=== PATIENT | female | born 1945 | race Caucasian/White ===

== ENCOUNTER 2022-06-01 15:14 | Inpatient (IN) | payer MEDICARE, OTHER ==
[~2022-06-01] VITALS: Ht 160 cm; Wt 69.4 kg
--- NOTE | 2022-06-01 15:17 | NUR ---
[id number] C/O SOB AND FEVER SINCE MORNING. AT 99% ON NRB. PLACED ON BED, RESPONDING TO VERBAL STIMULI, DYSPNEIC RR-30, TACHYCARDIC VA-147. MD AT BEDSIDE FOR EVAL.
[2022-06-01] MEDS: Magnesium 1GM/D5W 100ML PREMIX 100 ML IV SCH ×2 (15:30→16:35)
[2022-06-01] MEDS ORDERED: IPRATROPIUM NEB FS 0.5 MG/2.5 ML AMPUL.NEB NEB ONE (15:30)
[2022-06-01] MEDS ORDERED: IV NS 0.9% 500 ML BAG IV ONE (15:30)
[2022-06-01] MEDS ORDERED: ALBUTEROL FS 2.5 MG/0.5 ML VIAL.NEB NEB ONE (15:30)
[2022-06-01] MEDS ORDERED: methylPREDNISolone SOD SUCC 125 MG/2ML VIAL IV ONE (15:30)
--- NOTE | 2022-06-01 15:30 | NUR ---
BLOOD DRAWN AND SENT TO LAB
--- NOTE | 2022-06-01 15:35 | NUR ---
LINOTYPE MECHANIC AT BEDSIDE FOR BREATHING TREATMENT
[2022-06-01 15:36] LABS: BASOPHILS % (AUTO) 0.1 % (0.0-2.0); EOSINOPHILS % (AUTO) 0.2 % (0.0-6.0); HEMATOCRIT 35 % (33-45); LYMPHOCYTES # (AUTO) 0.5 K/uL (0.8-4.8); LYMPHOCYTES % (AUTO) 2.3 % (20.0-44.0); MEAN CORPUSCULAR HGB CONC 31 g/dl (31.0-36.0); MEAN CORPUSCULAR VOLUME 96 fL (82-100); MONOCYTES # (AUTO) 1.1 K/uL (0.1-1.30); MONOCYTES % (AUTO) 4.9 % (2.0-12.0); NEUTROPHILS % (AUTO) 92.5 % (43.0-81.0); PLATELET COUNT (AUTO) 213 K/uL (150-450); RED BLOOD CELL COUNT(AUTO) 3.68 MIL/uL (4.0-5.2); WHITE BLOOD COUNT (AUTO) 21.6 K/uL (4.3-11.0)
[2022-06-01] MEDS ORDERED: Magnesium 1GM/D5W 100ML PREMIX 100 ML IV ONE ×2 (15:37→16:25)
[2022-06-01] MEDS ORDERED: methylPREDNISolone SOD SUCC 125 MG/2ML VIAL ONE (15:37)
--- NOTE | 2022-06-01 15:40 | NUR ---
MOVE SHEET SUBMITTED.
[2022-06-01] MEDS ORDERED: ALBUTEROL FS 2.5 MG/0.5 ML VIAL.NEB ONE (15:43)
[2022-06-01] MEDS ORDERED: IPRATROPIUM NEB FS 0.5 MG/2.5 ML AMPUL.NEB ONE (15:43)
--- NOTE | 2022-06-01 15:44 | NUR ---
COVID AND FLU SWABS DONE AND SENT TO LAB
--- NOTE | 2022-06-01 15:45 | NUR ---
RT AT BEDSIDE FOR TREATMENT
[2022-06-01 15:50] LABS: CALCIUM, SERUM 9.1 mg/dL (8.5-10.1); CARBON DIOXIDE 30 mmol/L (21-32); CHLORIDE 92 mmol/L (98-107); CREATININE 0.9 mg/dL (0.6-1.3); GLUCOSE 138 mg/dL (74-106); POTASSIUM 4.9 mmol/L (3.5-5.1); SODIUM SERUM 126 mmol/L (136-145); UREA NITROGEN, BLOOD 10 mg/dL (7-18)
[2022-06-01 16:03] LABS: ALANINE AMINOTRANSFERASE 32 U/L (12-78); ALBUMIN 3.1 g/dL (3.4-5.0); ALKALINE PHOSPHATASE 95 U/L (46-116); ASPARTATE AMINOTRANSFERASE 24 U/L (15-37); BILIRUBIN,DIRECT 0.3 mg/dL (0.0-0.2); BILIRUBIN,TOTAL 0.9 mg/dL (0.2-1.0); TOTAL PROTEIN, SERUM 6.7 g/dL (6.4-8.2)
[2022-06-01] MEDS ORDERED: VANCOMYCIN HCL 1.25 GM in IV D5W 260 ML IV ONE (17:00)
[2022-06-01] MEDS ORDERED: PIPERACILLIN /TAZOBACTAM 3.375 G in IV D5W 50 ML IV ONE (17:00)
--- NOTE | 2022-06-01 17:19 | NUR ---
RT NOTE PT BROUGHT IN TO ER FOR SOB. PLACED ON BIPAP PER MD ORDER 23/02 16 100%. HHN TX GIVEN PER MD. BROCK SHERMAN AT BEDSIDE. NO NEW ORDERS GIVEN. WILL CONTINUE TO MONITOR PT. Addendum: 06/01/22 at 1722 by JESS FERNANDO RT Amended: Links added.
--- NOTE | 2022-06-01 17:53 | NUR ---
[facility] CALLED ACUTE CARE REGISTERED NURSE PAGED.
[2022-06-01 18:43] LABS: BAND % (MANUAL) 6 % (0.0-5.0); LYMPHOCYTES % (MANUAL) 2 % (16-48); MONOCYTES % (MANUAL) 1 % (0-11.0); NEUTROPHILS % (MANUAL) 91 (42-76)
--- NOTE | 2022-06-01 18:59 | NUR ---
GOT BED ASSIGNMENT 256
[2022-06-01] MEDS ORDERED: IV NS 0.9% 1,000 ML IV ONE ×2 (19:00→19:30)
--- NOTE | 2022-06-01 19:46 | NUR ---
SON , CALL ONCE WE HAVE A ROOM [phone]
--- NOTE | 2022-06-01 20:00 | NUR ---
REPORT GIVEN TO CAROLINE RN ROOM 256 FOR CATHERINE
--- NOTE | 2022-06-01 20:00 | NUR ---
URINE SAMPLE SENT TO LAB
[2022-06-01] MEDS ORDERED: Z GUARD REMEDY 4 OZ OINT TP PRN (20:30)
[2022-06-01] MEDS ORDERED: CEFEPIME 1 GM in IV D5W 50 ML IV SCH (20:30)
[2022-06-01] MEDS ORDERED: ENOXAPARIN SODIUM 40 MG/0.4 ML DISP.SYRIN SQ SCH (20:30)
[2022-06-01 20:58] VITALS: BP 120/48
[2022-06-01 21:00] VITALS: BP 127/58
--- NOTE | 2022-06-01 21:00 | NUR ---
Received patient from ER per butch via ACLS MODE.Patient place on BIPAP by RT 23/02 Rate 16 FIO2 60%.DX: COPD EXACERBATION.Patient came from SNF C/O SOB and fever.Respiration even and unlabored.Saturation 100%.SR.Afebrile.Patient drowsy but responsive oriented to person and place.Moves all extremities but weak.FC to gravity.Oriented to unit and plan of care explained to patient.Verbalized understanding.Denies pain or any discomfort at this time.Safety measures implemented. Call light at bedside.
[2022-06-01 21:01] LABS: BILIRUBIN,URINE NEGATIVE (NEGATIVE); COLOR,URINE YELLOW (YELLOW); LEUKOCYTE ESTERASE ,URINE NEGATIVE (NEGATIVE); NITRITE, URINE NEGATIVE (NEGATIVE); PH,URINE 6.5 (5.0-8.0); PROTEIN,URINE NEGATIVE (NEGATIVE); UGLUCOSE NEGATIVE (NEGATIVE)
[2022-06-01 21:32] LABS: BACTERIA,URINE RARE /HPF (None Seen); RBC,URINE 0-2 /HPF (0-2); WBC,URINE 0-2 /HPF (0-3)
--- NOTE | 2022-06-01 21:50 | NUR ---
Patient son,BERTRAND visiting updated of patient status and plan of care.
[2022-06-01 22:00] VITALS: BP 95/49
[2022-06-01] MEDS ORDERED: CEFEPIME 1 GM VIAL ONE (22:49)
[2022-06-01 23:00] VITALS: BP 98/46
[2022-06-01] MEDS ORDERED: CEFEPIME 1 GM in IV D5W 50 ML IV ONE (23:30)
[2022-06-02] VITALS (14 sets, daily range): BP systolic 84–126; BP diastolic 40–84
[2022-06-02] MEDS: IV LR 1000 ML 1,000 ML IV PRN ×2 (01:39→12:16)
[2022-06-02 05:14] LABS: BASOPHILS % (AUTO) 0.1 % (0.0-2.0); HEMATOCRIT 24 % (33-45); LYMPHOCYTES # (AUTO) 0.2 K/uL (0.8-4.8); MEAN CORPUSCULAR HGB CONC 33 g/dl (31.0-36.0); MEAN CORPUSCULAR VOLUME 95 fL (82-100); MONOCYTES # (AUTO) 0.1 K/uL (0.1-1.30); MONOCYTES % (AUTO) 1.9 % (2.0-12.0); NEUTROPHILS # (AUTO) 7.3 K/uL (1.8-8.9); PLATELET COUNT (AUTO) 135 K/uL (150-450); RED BLOOD CELL COUNT(AUTO) 2.55 MIL/uL (4.0-5.2); WHITE BLOOD COUNT (AUTO) 7.7 K/uL (4.3-11.0)
[2022-06-02 05:36] LABS: BILIRUBIN,TOTAL 0.5 mg/dL (0.2-1.0); CALCIUM, SERUM 7.7 mg/dL (8.5-10.1); CREATININE 0.6 mg/dL (0.6-1.3); MAGNESIUM 2.3 mg/dL (1.8-2.4); PHOSPHORUS 2.9 mg/dL (2.5-4.9); POTASSIUM 4.1 mmol/L (3.5-5.1); TOTAL PROTEIN, SERUM 4.8 g/dL (6.4-8.2)
[2022-06-02 05:44] LABS: THYROID STIMULATING HORMONE 0.188 uIU/mL (0.358-3.74)
[2022-06-02 06:15] LABS: ABG BASE EXCESS 2.4 mmol/L; ABG OXYGEN SATURATION 99.5 % (92.0-98.5); ABG PCO2 49.7 mmHg (35.0-45.0); ABG PH 7.371 (7.350-7.450); ABG PO2 247.3 mmHg (75.0-100.0); AaDO2 125.8 mmHg; COHb 0.1 % (0.5-1.5); MetHb 0.1 % (0.0-1.5); O2Hb 99.3 % (94.0-97.0); SITE, ABG Right Brachial; VENT MODE, BG S/T 16 20/8 60%
--- NOTE | 2022-06-02 07:00 | NUR ---
Patient resting slept most of the night tolerating BIPAP.More awake Oriented to place and time. VSS.SR.Denies pain or sob.IVF infusing well.Adequate urine output.Report given to day shift RN for sergio.
[2022-06-02] MEDS ORDERED: PANTOPRAZOLE 40 MG TABLET.DR PO SCH (07:30)
[2022-06-02] MEDS: ALBUTEROL FS 2.5 MG/3 ML VIAL.NEB NEB SCH ×4 (07:52→20:25)
[2022-06-02] MEDS: IPRATROPIUM NEB FS 0.5 MG/2.5 ML AMPUL.NEB NEB SCH ×6 (07:52→20:25)
[2022-06-02] MEDS: ASPIRIN EC 81 MG TABLET.DR PO SCH (08:36)
[2022-06-02] MEDS ORDERED: ALPR0.5T PO (08:44)
[2022-06-02] MEDS ORDERED: IPRA3AMP23 IH ×2 (08:44)
[2022-06-02] MEDS ORDERED: PROM118S PO (08:44)
[2022-06-02] MEDS ORDERED: SENN-261 PO (08:44)
[2022-06-02] MEDS ORDERED: IBUP-2715 PO (08:44)
[2022-06-02] MEDS ORDERED: BISA10SU11 RC (08:44)
[2022-06-02] MEDS ORDERED: MULT-447 PO (08:44)
[2022-06-02] MEDS ORDERED: TIOT18CA3 IH (08:44)
[2022-06-02] MEDS ORDERED: HYDR28.485 TD (08:44)
[2022-06-02] MEDS ORDERED: ASCO100058 PO (08:44)
[2022-06-02] MEDS ORDERED: SODI1TAB66 PO (08:44)
[2022-06-02] MEDS ORDERED: MONT10TA22 PO (08:44)
[2022-06-02] MEDS ORDERED: ZINC113O14 TP (08:44)
[2022-06-02] MEDS ORDERED: BUDE0.5A4 IH (08:44)
[2022-06-02] MEDS ORDERED: LIDO30AD10 TP (08:44)
[2022-06-02] MEDS ORDERED: NA P133E RC (08:44)
[2022-06-02] MEDS ORDERED: ACET-2605 PO (08:44)
[2022-06-02] MEDS ORDERED: LOSA50TA39 PO (08:44)
[2022-06-02] MEDS ORDERED: PRED10TA PO (08:44)
[2022-06-02] MEDS ORDERED: GUAI600T53 PO (08:44)
[2022-06-02] MEDS ORDERED: CHOL100043 PO (08:44)
[2022-06-02] MEDS ORDERED: MAGN400O6 PO (08:44)
[2022-06-02] MEDS ORDERED: OXYC10TA49 PO ×2 (08:44)
[2022-06-02] MEDS ORDERED: NEOM1OIN15 TP (08:44)
[2022-06-02] MEDS ORDERED: ROFL250T PO (08:44)
[2022-06-02] MEDS ORDERED: TRAZ-182 PO (08:44)
[2022-06-02] MEDS ORDERED: ONDA4TAB5 PO (08:44)
[2022-06-02] MEDS ORDERED: PANT40TA2 PO (08:44)
[2022-06-02] MEDS ORDERED: FLUT16SP (08:44)
[2022-06-02] MEDS ORDERED: CITA10TA17 PO (08:44)
[2022-06-02] MEDS ORDERED: POLY17PO4 PO (08:44)
[2022-06-02] MEDS ORDERED: ATOR40TA PO (08:44)
[2022-06-02] MEDS ORDERED: ALBU8.5H8 IH (08:44)
[2022-06-02] MEDS ORDERED: DILT120C87 PO (08:44)
--- NOTE | 2022-06-02 10:20 | NUR ---
ROWDY CALLEJAS AT THE UNIT AND MADE AWARE OF PATIENT'S C/O ANXIOUSNESS, NO ORDER MADE AT THIS TIME.
--- NOTE | 2022-06-02 11:45 | NUR ---
NOTIFIED MARILYNN AGAIN AND MADE AWARE OF PATIENT'S C/O ANXIOUSNESS, MD STATES " WILL PUT XANAX ORDER."
[2022-06-02] MEDS ORDERED: SALINE NASAL SPRAY 0.65% 1 BOTTLE BOTTLE NS PRN (12:00)
[2022-06-02] MEDS ORDERED: FLUTICASONE PROPIONATE 16 GM BOTTLE NS PRN (12:00)
[2022-06-02] MEDS: CEFEPIME 2 GM in IV D5W 100 ML IV SCH (12:01)
[2022-06-02] MEDS: ALPRAZOLAM 0.5 MG TABLET PO PRN (12:12)
--- NOTE | 2022-06-02 12:30 | NUR ---
RAILROADER NOTES RECEIVED PATIENT FROM ICU , WITH DX OF COPD EXACERBATION , A/O X 4 AND VERBALLY RESPONSIVE , NO SOB OR DISTRESS NOTED , NO C/O OF PAIN AND DISCOMFORT NOTED , IV ACCES ON LEFT WRIST G20 WITH LR OF 100 ML /HOUR RUNNING WELL , IV ACCES RIGHT WRIST G#18 SL ,SUBSTATION MAINTENANCE TECHNICIAN ATTACHED AND WITH READING OF SR 92 , NOTED WITH ECCHYMOSIS ON CHEST ; RFA , BLE SKIN DISCOLORATION AND EDEMA +2 , V/S TAKEN AND RECORDED , ALL NEEDS ATTENDED .
--- NOTE | 2022-06-02 12:45 | NUR ---
TRANSFERRED PT TO [facility]/TELE UNIT, RM 116-BED-1 PER ORDER/PROTOCOL; BEDSIDE REPORT GIVEN TO MICHELLE NUNO, PT.STABLE CONDITION; NO SSx OF DISTRESS NOTED. VS STABLE . ALL BELONGINGS TRANSFERRED WITH PATIENT, ROSS AWARE.
[2022-06-02] MEDS: oxyCODONE IR immediate release 5 MG PO PRN (13:45)
[2022-06-02] MEDS: methylPREDNISolone SOD SUCC 40 MG/ML VIAL IV SCH ×2 (13:56→21:58)
[2022-06-02] MEDS: ACETYLCYSTEINE 10% SOLN 400 MG/4 ML VIAL NEB SCH (15:20)
[2022-06-02] MEDS ORDERED: IV LR 1000 ML 1,000 ML IV PRN (16:10)
[2022-06-02] MEDS: LOSARTAN POTASSIUM 50 MG TABLET PO SCH (17:22)
[2022-06-02] MEDS: PANTOPRAZOLE 40 MG TABLET.DR PO SCH (17:22)
[2022-06-02] MEDS: VANCOMYCIN 1.25 GM in IV D5W 250 ML IV SCH (17:25)
[2022-06-02] MEDS ORDERED: ALPRAZOLAM 0.5 MG TABLET PO ONE (17:30)
--- NOTE | 2022-06-02 17:30 | NUR ---
RN NOTES PATIENT C/O THAT SHE VERY ANXIOUS AND ASKING FOR XANAX , EXPAINED THAT ITS Q8H PRN , AWARE AND AWARE ABOUT PATIENTS CONDITION AND HE ORDERED TO GIVE X 1 DOSE AND GIVEN ORDERED .
--- NOTE | 2022-06-02 17:35 | NUR ---
SKID ROAD MAN CLOSING NOTES PATIENT FROM ICU , WITH DX OF COPD EXACERBATION , A/O X 4 AND VERBALLY RESPONSIVE , NO SOB OR DISTRESS NOTED , NO C/O OF PAIN AND DISCOMFORT NOTED , IV ACCES ON LEFT WRIST G20 WITH LR OF 100 ML /HOUR RUNNING WELL , IV ACCES RIGHT WRIST G#18 SL ,QUALITY TECHNICIAN ATTACHED AND WITH READING OF SR 92 , ALL DUE MEDS ORDERED , C/O OF PAIN AND DISCOMFORT AND OXY IR ORDERED GIVEN AND WITH HELP , XANAX WAS GIVEN ORDERED , WILL ENDORSED TO NEXT SHIFT .
--- NOTE | 2022-06-02 20:00 | NUR ---
[facility] RN NOTE PT IN BED AWAKE. A/O X 3, NO SOB, NO DISTRESS OR DISCOMFORT NOTED. DENIES PAIN AT THIS TIME. ON O2 2L N'/C 02 SAT 98%. ON TELE SR WITH PAC AND PVC HR 88. BOTH SL OCCLUDED RT WRIST AND LT WRIST. WILL REINSERT NEW LINE LATER. F/C INTACT AND PATENT DRAINING YELLOWISH COLOR URINE. VSS. ALL NEEDS ATTENDED. KEPT HER DRY AND CLEAN. CONTINUE TO MONITOR HER.
[2022-06-02] MEDS: BUDESONIDE RESPULE INH 0.5 MG/2 ML AMPUL.NEB IH SCH (20:25)
--- NOTE | 2022-06-02 21:30 | NUR ---
[facility] RN NOTE NEW LINE IN INSERTED IN RT HAND 2ND DIGIT #24 G BY CHARGE NURSE DADA, RESUMED LR AT 75 ML/HR, NO S/S OF INFILTRATION NOTED. HS MEDS GIVEN. ALSO GIVEN PER PT REQUEST TRAZODONE FOR SLEEP. CONTINUE TO MONITOR HER.
[2022-06-02] MEDS: ATORVASTATIN 40 MG TABLET PO SCH (21:58)
[2022-06-02] MEDS: TRAZODONE 50 MG TABLET PO PRN (21:58)
[2022-06-02] MEDS: MONTELUKAST SODIUM (10MG) 10 MG TABLET PO SCH (21:58)
[2022-06-02] MEDS: ENOXAPARIN SODIUM 40 MG/0.4 ML DISP.SYRIN SQ SCH (21:59)
[2022-06-03] VITALS: BP_SYST 134; BP_SYST 139; BP_DIAS 54; BP_DIAS 73
[2022-06-03] MEDS: ACETYLCYSTEINE 10% SOLN 400 MG/4 ML VIAL NEB SCH ×4 (00:15→23:30)
[2022-06-03] MEDS: IPRATROPIUM NEB FS 0.5 MG/2.5 ML AMPUL.NEB NEB SCH ×8 (02:27→20:44)
[2022-06-03 04:00] VITALS: BP 141/63
[2022-06-03] MEDS: methylPREDNISolone SOD SUCC 40 MG/ML VIAL IV SCH ×3 (05:35→21:29)
[2022-06-03] MEDS: ALBUTEROL FS 2.5 MG/3 ML VIAL.NEB NEB SCH ×4 (07:49→20:20)
[2022-06-03] MEDS: BUDESONIDE RESPULE INH 0.5 MG/2 ML AMPUL.NEB IH SCH ×2 (07:49→20:44)
[2022-06-03 08:00] VITALS: BP 115/58
[2022-06-03] MEDS: ASPIRIN EC 81 MG TABLET.DR PO SCH (08:05)
[2022-06-03] MEDS: PANTOPRAZOLE 40 MG TABLET.DR PO SCH ×2 (08:05→16:51)
[2022-06-03] MEDS: DILTIAZEM HCL CD 120 MG PO SCH (08:06)
[2022-06-03] MEDS: CITALOPRAM HYDROBROMIDE 10 MG TABLET PO SCH (08:06)
[2022-06-03] MEDS: LOSARTAN POTASSIUM 50 MG TABLET PO SCH ×2 (08:06→16:51)
[2022-06-03] MEDS: ALPRAZOLAM 0.5 MG TABLET PO PRN ×2 (08:24→16:51)
[2022-06-03] MEDS: oxyCODONE IR immediate release 5 MG PO PRN ×2 (09:16→21:30)
[2022-06-03] MEDS: CEFEPIME 2 GM in IV D5W 100 ML IV SCH (10:41)
[2022-06-03] MEDS ORDERED: oxyCODONE HCL SR 10MG TAB.SR.12H PO ONE (11:30)
[2022-06-03] MEDS ORDERED: NALOXONE HCL 0.4 MG/ML AMPUL IV PRN (11:30)
[2022-06-03 12:00] VITALS: BP 132/62
--- NOTE | 2022-06-03 14:45 | NUR ---
RN NOTE FC REMOVED PER ORDER. PUREWICK IN PLACE. PT EDUCATED ON PUREWICK.
[2022-06-03 16:00] VITALS: BP 120/5
[2022-06-03 16:33] LABS: CREATININE 0.7 mg/dL (0.6-1.3); POTASSIUM 4.2 mmol/L (3.5-5.1)
[2022-06-03] MEDS: VANCOMYCIN 1.25 GM in IV D5W 250 ML IV SCH (17:54)
[2022-06-03 20:00] VITALS: BP 124/62
[2022-06-03] MEDS: NEOMY SULF/BACITRAC ZN/POLY 15 GM TUBE TP SCH (20:00)
--- NOTE | 2022-06-03 20:43 | NUR ---
RN NOTE UNABLE TO APPLY NEOSPORIN TO RUE WOUND THE XEROFORM UNABLE TO BE REMOVED. RAILROAD WHEELS AND AXLES INSPECTOR TO COME IN AM.
[2022-06-03] MEDS: ENOXAPARIN SODIUM 40 MG/0.4 ML DISP.SYRIN SQ SCH (21:00)
--- NOTE | 2022-06-03 21:17 | NUR ---
RN NOTE INFORMED DR. CORCORAN THAT PATIENT IS REQUESTING LOZANGES. RECEIVED ORDERED FOR LOZANGES Q2HR PRN. ORDER NOTED AND CARRIED OUT.
[2022-06-03] MEDS: ATORVASTATIN 40 MG TABLET PO SCH (21:29)
[2022-06-03] MEDS: MONTELUKAST SODIUM (10MG) 10 MG TABLET PO SCH (21:29)
--- NOTE | 2022-06-03 21:40 | NUR ---
RN NOTE FAXED MEDICATION ORDER TO RN COMMERCIAL PLUMBER, PER COMMERCIAL PLUMBER WE DO NOT CARRY IN NIGHT MEDICATION LOCKER, INFORMED PATIENT, WILL HAVE PHARMACY DELIVER IN AM.
[2022-06-04] VITALS: BP 139/73
[2022-06-04] MEDS: ALPRAZOLAM 0.5 MG TABLET PO PRN ×3 (01:07→16:35)
[2022-06-04] MEDS: IPRATROPIUM NEB FS 0.5 MG/2.5 ML AMPUL.NEB NEB SCH ×8 (02:19→19:46)
[2022-06-04 04:00] VITALS: BP 132/71
[2022-06-04] MEDS: oxyCODONE IR immediate release 5 MG PO PRN ×2 (05:39→14:42)
[2022-06-04] MEDS: methylPREDNISolone SOD SUCC 40 MG/ML VIAL IV SCH ×3 (05:39→21:30)
[2022-06-04] MEDS: ACETYLCYSTEINE 10% SOLN 400 MG/4 ML VIAL NEB SCH ×3 (07:26→23:48)
[2022-06-04] MEDS: ALBUTEROL FS 2.5 MG/3 ML VIAL.NEB NEB SCH ×4 (07:26→19:45)
[2022-06-04] MEDS: BUDESONIDE RESPULE INH 0.5 MG/2 ML AMPUL.NEB IH SCH ×2 (07:26→19:49)
[2022-06-04 07:28] LABS: CARBON DIOXIDE 29 mmol/L (21-32); CHLORIDE 100 mmol/L (98-107); CREATININE 0.6 mg/dL (0.6-1.3); GLUCOSE 137 mg/dL (74-106); POTASSIUM 4.2 mmol/L (3.5-5.1); SODIUM SERUM 134 mmol/L (136-145); UREA NITROGEN, BLOOD 11 mg/dL (7-18)
--- NOTE | 2022-06-04 07:33 | NUR ---
RN CLOSING NOTE A/OX3, SOMETIMES FORGETFUL. 2L VIA NASAL CANNULA. NO S/S SOB NOTED. C/O PAIN IN BACK AND BILATERAL ELBOWS. PRN OXY IR 10MG GIVEN. PRN XANAX GIVEN FOR ANXIETY. PATIENT IS VERY ANXIOUS. SINUS RHYTHM ON THE MONITOR. NO BM THIS SHIFT. PUREWICK IN PLACE WITH GOOD OUTPUT. RUE SOAKED WITH STERILE WATER THROUGHOUT SHIFT WOUND CARE TEAM WILL COME AND REASSESS WOUND. VERY DRY WITH XEROFORM ATTACHED AND DIFFICULT TO REMOVE. IV MAINTAINED. PLAN OF CARE TO CONTINUE ABX, BREATHING TX , O2 TITRATION AND STEROIDS PER PULM.
--- NOTE | 2022-06-04 07:44 | NUR ---
RN OPENING NOTE A/OX3, SOMETIMES FORGETFUL. 2L VIA NASAL CANNULA. NO S/S SOB NOTED. SINUS RHYTHM ON THE MONITOR. PUREWICK IN PLACE WITH GOOD OUTPUT. WOUND CARE NURSE AT BED SIDE PERFORMING WOUND CARE.. PATIENT HAS A RIGHT HAND 2BD DIGIT IV ACCESS TKO. SAFETY MEASURES IN PLACE PER HOSPITAL POLICY.
[2022-06-04 07:45] LABS: HEMATOCRIT 26 % (33-45); HEMOGLOBIN 8.6 g/dL (11.5-14.8); LYMPHOCYTES # (AUTO) 0.2 K/uL (0.8-4.8); LYMPHOCYTES % (AUTO) 2.1 % (20.0-44.0); MEAN CORPUSCULAR HGB CONC 33 g/dl (31.0-36.0); MEAN CORPUSCULAR VOLUME 95 fL (82-100); MONOCYTES # (AUTO) 0.3 K/uL (0.1-1.30); MONOCYTES % (AUTO) 2.7 % (2.0-12.0); NEUTROPHILS % (AUTO) 95.2 % (43.0-81.0); PLATELET COUNT (AUTO) 142 K/uL (150-450); RED BLOOD CELL COUNT(AUTO) 2.75 MIL/uL (4.0-5.2); WHITE BLOOD COUNT (AUTO) 9.5 K/uL (4.3-11.0)
[2022-06-04 08:00] VITALS: BP 139/73
[2022-06-04] MEDS: MENTHOL/CETYLPYRD (CEPACOL) 1 LOZ LOZENGE PO PRN (08:08)
--- NOTE | 2022-06-04 08:08 | NUR ---
WOUND CARE CONSULT: PT SEEN FOR SKIN ASSESSMENT AND NOTED TO HAVE LARGE SKIN TEAR/AVULSION TO RT ARM AND SKIN TEAR TO LEFT HAND, PRESENT ON ADMISSION. RT ARM WOUND HAD XEROFORM DRESSING WHICH HAD BECOME ADHERENT AND WAS REMOVED WITH COPIOUS IRRIGATION OF STERILE WATER, PT TOLERATED WELL. PT HAS VERY FRAGILE SKIN WITH AREAS OF DISCOLORATION. RECOMMENDATIONS MADE FOR SKIN PROTECTION AND WOUND CARE. DISCUSSED WITH NURSING STAFF AND PLASTIC SURGERY TEAM OF DR KOHANZADEH. ORANETS IN AGREEMENT WITH PLAN OF CARE. Addendum: 06/04/22 at 0811 by TAHIR PHELPS WNDNU Amended: Links added.
[2022-06-04] MEDS: ASPIRIN EC 81 MG TABLET.DR PO SCH (08:14)
[2022-06-04] MEDS: CITALOPRAM HYDROBROMIDE 10 MG TABLET PO SCH (08:14)
[2022-06-04] MEDS: LOSARTAN POTASSIUM 50 MG TABLET PO SCH ×2 (08:14→16:35)
[2022-06-04] MEDS: PANTOPRAZOLE 40 MG TABLET.DR PO SCH ×2 (08:15→16:35)
[2022-06-04] MEDS: DILTIAZEM HCL CD 120 MG PO SCH (08:16)
[2022-06-04] MEDS: NEOMY SULF/BACITRAC ZN/POLY 15 GM TUBE TP SCH (08:16)
[2022-06-04 12:00] VITALS: BP 142/73
[2022-06-04] MEDS: MUPIROCIN OINT 2% 22 GM TUBE NS SCH ×2 (12:21→21:30)
[2022-06-04] MEDS: CEFEPIME 2 GM in IV D5W 100 ML IV SCH (12:40)
[2022-06-04] MEDS ORDERED: MUPIROCIN OINT 2% 22 GM TUBE NS SCH (15:00)
[2022-06-04 16:00] VITALS: BP 137/75
--- NOTE | 2022-06-04 16:41 | NUR ---
RN NOTE PATIENT NOTED TO HAVE INCREASED BLEEDING FROM RIGHT ARM WOUND. WAS ADVISED BY WOUND CARE NURSE TO DC LOVENOX AND ASPIRIN UNTIL BLEEDING IS CONTROLLED. INFORMED DR QUICK RECEIVED OKAY TO STOP MEDICATION FOR NOW.
[2022-06-04] MEDS: VANCOMYCIN 1.25 GM in IV D5W 250 ML IV SCH (18:27)
--- NOTE | 2022-06-04 18:53 | NUR ---
RN CLOSING NOTE A/OX3, SOMETIMES FORGETFUL. 2L VIA NASAL CANNULA. NO S/S SOB NOTED. C/O PAIN IN BACK AND BILATERAL ELBOWS. PRN OXY IR 10MG GIVEN. PRN XANAX GIVEN FOR ANXIETY. PATIENT IS VERY ANXIOUS. SINUS RHYTHM ON THE MONITOR. NO BM THIS SHIFT. PUREWICK IN PLACE WITH GOOD OUTPUT. RUE SOAKED WITH STERILE WATER THROUGHOUT SHIFT IV MAINTAINED. PLAN OF CARE TO CONTINUE ABX, BREATHING TX , O2 TITRATION AND STEROIDS PER PULM. SAFETY MEASURES IN PLACE PER HOSPITAL POLICY. ENDORSE FOR PLATE GRINDER NURSE TO CONTINUE EVALUATION.
--- NOTE | 2022-06-04 19:30 | NUR ---
BUILDING SPECIALIST OPENING NOTE RECEIVED PT IN AWAKE IN BED A/OX3, SOMETIMES FORGETFUL. 2L VIA NASAL CANNULA. NO S/S SOB NOTED. SINUS RHYTHM ON THE MONITOR. NOTED WITH RUE WOUND WITH DRESSING C/D/I, IV ACCESS AT DOROTEO ML AND R HAND INTACT, PATENT AND FLUSHING WELL, WITH PUREWICK IN PLACED, SAFETY MEASURES IN PLACE PER HOSPITAL POLICY. FAMILY MEMBER AT BEDSIDE, WILL CONTINUE TO MONITOR THROUGHOUT THE SHIFT.
[2022-06-04 20:00] VITALS: BP 138/66
[2022-06-04] MEDS: ATORVASTATIN 40 MG TABLET PO SCH (21:30)
[2022-06-04] MEDS: MONTELUKAST SODIUM (10MG) 10 MG TABLET PO SCH (21:30)
[2022-06-04] MEDS: TRAZODONE 50 MG TABLET PO PRN (22:27)
[2022-06-05] VITALS: BP 132/73
[2022-06-05] MEDS: ALPRAZOLAM 0.5 MG TABLET PO PRN ×2 (01:20→11:10)
[2022-06-05] MEDS: IPRATROPIUM NEB FS 0.5 MG/2.5 ML AMPUL.NEB NEB SCH ×6 (02:02→20:06)
[2022-06-05 04:00] VITALS: BP 132/73
[2022-06-05] MEDS: methylPREDNISolone SOD SUCC 40 MG/ML VIAL IV SCH ×3 (05:44→21:52)
[2022-06-05 06:07] LABS: CALCIUM, SERUM 8.2 mg/dL (8.5-10.1); CARBON DIOXIDE 36 mmol/L (21-32); CHLORIDE 103 mmol/L (98-107); CREATININE 0.5 mg/dL (0.6-1.3); GLUCOSE 139 mg/dL (74-106); POTASSIUM 3.8 mmol/L (3.5-5.1); SODIUM SERUM 138 mmol/L (136-145); UREA NITROGEN, BLOOD 12 mg/dL (7-18)
[2022-06-05 06:20] LABS: HEMATOCRIT 26 % (33-45); HEMOGLOBIN 8.6 g/dL (11.5-14.8); LYMPHOCYTES # (AUTO) 0.2 K/uL (0.8-4.8); LYMPHOCYTES % (AUTO) 2.4 % (20.0-44.0); MEAN CORPUSCULAR HGB CONC 33 g/dl (31.0-36.0); MEAN CORPUSCULAR VOLUME 94 fL (82-100); MONOCYTES # (AUTO) 0.3 K/uL (0.1-1.30); MONOCYTES % (AUTO) 3.7 % (2.0-12.0); NEUTROPHILS # (AUTO) 7.4 K/uL (1.8-8.9); NEUTROPHILS % (AUTO) 93.9 % (43.0-81.0); PLATELET COUNT (AUTO) 129 K/uL (150-450); RED BLOOD CELL COUNT(AUTO) 2.75 MIL/uL (4.0-5.2); WHITE BLOOD COUNT (AUTO) 7.9 K/uL (4.3-11.0)
--- NOTE | 2022-06-05 06:46 | NUR ---
ACCOUNTING MACHINE OPERATOR CLOSING NOTE PT REMAINS IN BED SLEEPING BUT EASILY AROUSABLE TO TOUCH AND VOICE, A/OX3, SOMETIMES FORGETFUL. 2L VIA NASAL CANNULA. NO S/S SOB NOTED. SINUS RHYTHM ON THE MONITOR. NOTED WITH RUE AND L HAND WOUND WITH DRESSING C/D/I, IV ACCESS AT DOROTEO ML AND R HAND 2ND DIGIT #24G INTACT, PATENT AND FLUSHING WELL, WITH PUREWICK IN PLACED, ALL NEEDS ATTENDED, SAFETY MEASURES IN PLACE PER HOSPITAL POLICY. ALL DUE MEDS GIVEN, KEPT DRY AND CLEAN, WILL CONTINUE TO MONITOR THROUGHOUT THE SHIFT.
--- NOTE | 2022-06-05 07:41 | NUR ---
RN NOTES Received patient in bed, alert but tired looking without active complaint. Telemetry showed ST HR 125/min. Right hand IV site is dry and intact with IVF running at 75mL/hr. Call harrington is placed within reach. Bed is locked and placed in the lowest position. All safety measures have been implemented. Addendum: 06/05/22 at 0748 by GROVER SHERIFF RN wrong entry
[2022-06-05 08:00] VITALS: BP 170/90
--- NOTE | 2022-06-05 08:00 | NUR ---
RN NOTES RECEIVED PATIENT IN THE BED ON O2-2L, patient full code on DNI, was complaining of sob, rt with the patient at this time for breathing treatment, due medication administered, am care done, assist turn and reposition q 2 hr. patient was complaining of generalize pain 8/10 per pain scale,due medication administered, DOROTEO midline intact. flashed, infusing Tko. call light within to reach. will follow up.
[2022-06-05] MEDS: ACETYLCYSTEINE 10% SOLN 400 MG/4 ML VIAL NEB SCH (08:11)
[2022-06-05] MEDS: ALBUTEROL FS 2.5 MG/3 ML VIAL.NEB NEB SCH ×4 (08:11→20:07)
[2022-06-05] MEDS: BUDESONIDE RESPULE INH 0.5 MG/2 ML AMPUL.NEB IH SCH ×2 (08:12→20:00)
[2022-06-05] MEDS: LOSARTAN POTASSIUM 50 MG TABLET PO SCH ×2 (08:25→17:50)
[2022-06-05] MEDS: PANTOPRAZOLE 40 MG TABLET.DR PO SCH ×2 (08:25→15:46)
[2022-06-05] MEDS: DILTIAZEM HCL CD 120 MG PO SCH (08:27)
[2022-06-05] MEDS: CITALOPRAM HYDROBROMIDE 10 MG TABLET PO SCH (08:27)
[2022-06-05] MEDS: NEOMY SULF/BACITRAC ZN/POLY 15 GM TUBE TP SCH (08:31)
[2022-06-05] MEDS: oxyCODONE IR immediate release 5 MG PO PRN ×2 (08:39→16:46)
--- NOTE | 2022-06-05 08:39 | NUR ---
RN NOTES ADMINISTERED OXY IR 10 MG PO PRN PER PATIENT REQUEST FOR GENERALIZED PAIN 02/13. BP 170/90, P-125.
[2022-06-05] MEDS: MUPIROCIN OINT 2% 22 GM TUBE NS SCH ×2 (10:18→21:55)
[2022-06-05] MEDS: CEFEPIME 2 GM in IV D5W 100 ML IV SCH (10:19)
--- NOTE | 2022-06-05 10:19 | NUR ---
RN NOTES ADMINISTERED FLONASE PER PATIENT REQUEST, MEDICATION WERE ADMINISTERED FOR PAIN EFFECTIVE, PT WITH THE PATIENT.
--- NOTE | 2022-06-05 11:10 | NUR ---
RN NOTES ADMINISTERED XANAX 0.5 MG PO PRN FOR ANXIETY PER PATIENT REQUEST.
[2022-06-05 12:00] VITALS: BP_SYST 131; BP_SYST 170; BP_DIAS 71; BP_DIAS 90
[2022-06-05] MEDS: IBUPROFEN 200 MG TABLET PO PRN ×2 (13:08→21:52)
--- NOTE | 2022-06-05 13:08 | NUR ---
RN Notes Administered Motrin 400 mg per patient's request for generalized pain.
[2022-06-05] MEDS: ACETAMINOPHEN 325 MG TABLET PO PRN (15:45)
--- NOTE | 2022-06-05 15:45 | NUR ---
rn notes administered Tylenol 650 mg po prn for pain 12/14.
[2022-06-05 16:00] VITALS: BP 161/79
[2022-06-05] MEDS: ALBUTEROL FS 2.5 MG/0.5 ML VIAL.NEB NEB PRN (16:17)
--- NOTE | 2022-06-05 18:30 | NUR ---
RN NOtes PM care done, due medications administered, infusing vancomicyn 125 ml/hr, pain medication were administered affective, patient resting in the bed. call light is within reach, assisted turn and reposition every 2 hours. endorsed oncoming nurse CATHERINE.
[2022-06-05] MEDS: VANCOMYCIN 1.25 GM in IV D5W 250 ML IV SCH (18:38)
[2022-06-05 20:00] VITALS: BP 162/72
--- NOTE | 2022-06-05 20:15 | NUR ---
RN OPENING NOTES PATIENT RECEIVED ON BED AWAKE, A/O X 3, VERBALLY RESPONSIVE ON NASAL CANULA @ 2LPM SATING AT 94%, RESPIRATORY EVEN AND UNLABORED NO SOB NOTED, AFEBRILE, NO S/S OF DISTRESS NOTED. NOTED WITH DOROTEO ML, RIGHT HAND SECOND DIGIT #24 PERIPHERAL LINE, FLUSHED WITH NS. WITH PUREWICK IN PLACED. ALL SAFETY MEASURE PROVIDED. BED IN LOWEST POSITION, LOCKED. CONTINUE TO MONITOR.
--- NOTE | 2022-06-05 21:10 | NUR ---
RN NOTES UNABLE TO ADMINISTER PULMICORT INH, MEDS UNABLE TO FIND. WILL FOLLOW UP WITH PHARMACY
[2022-06-05] MEDS: MONTELUKAST SODIUM (10MG) 10 MG TABLET PO SCH (21:52)
[2022-06-05] MEDS: ATORVASTATIN 40 MG TABLET PO SCH (21:52)
[2022-06-06] VITALS: BP 152/77
[2022-06-06] MEDS: ALPRAZOLAM 0.5 MG TABLET PO PRN ×3 (00:03→20:24)
[2022-06-06] MEDS: TRAZODONE 50 MG TABLET PO PRN (01:00)
[2022-06-06 04:00] VITALS: BP 158/86
[2022-06-06] MEDS: methylPREDNISolone SOD SUCC 40 MG/ML VIAL IV SCH ×2 (05:32→12:55)
[2022-06-06] MEDS: BUDESONIDE RESPULE INH 0.5 MG/2 ML AMPUL.NEB IH SCH ×2 (07:16→19:30)
[2022-06-06] MEDS: IPRATROPIUM NEB FS 0.5 MG/2.5 ML AMPUL.NEB NEB SCH ×4 (07:16→20:08)
[2022-06-06] MEDS: ALBUTEROL FS 2.5 MG/3 ML VIAL.NEB NEB SCH ×4 (07:16→20:08)
[2022-06-06 08:00] VITALS: BP 179/77
[2022-06-06 08:03] LABS: ALANINE AMINOTRANSFERASE 35 U/L (12-78); ALBUMIN 2.4 g/dL (3.4-5.0); ALKALINE PHOSPHATASE 59 U/L (46-116); ASPARTATE AMINOTRANSFERASE 18 U/L (15-37); BILIRUBIN,TOTAL 0.5 mg/dL (0.2-1.0); CALCIUM, SERUM 8.3 mg/dL (8.5-10.1); CARBON DIOXIDE 33 mmol/L (21-32); CHLORIDE 102 mmol/L (98-107); CREATININE 0.5 mg/dL (0.6-1.3); GLUCOSE 126 mg/dL (74-106); POTASSIUM 3.5 mmol/L (3.5-5.1); SODIUM SERUM 139 mmol/L (136-145); TOTAL PROTEIN, SERUM 5.2 g/dL (6.4-8.2); UREA NITROGEN, BLOOD 13 mg/dL (7-18)
[2022-06-06] MEDS: PANTOPRAZOLE 40 MG TABLET.DR PO SCH ×2 (08:24→17:00)
[2022-06-06] MEDS: CITALOPRAM HYDROBROMIDE 10 MG TABLET PO SCH (08:24)
[2022-06-06] MEDS: oxyCODONE IR immediate release 5 MG PO PRN ×3 (08:25→17:00)
[2022-06-06] MEDS: DILTIAZEM HCL CD 120 MG PO SCH (08:25)
[2022-06-06] MEDS: LOSARTAN POTASSIUM 50 MG TABLET PO SCH ×2 (08:25→17:00)
[2022-06-06] MEDS: MUPIROCIN OINT 2% 22 GM TUBE NS SCH ×2 (09:44→21:00)
[2022-06-06] MEDS: NEOMY SULF/BACITRAC ZN/POLY 15 GM TUBE TP SCH (09:44)
--- NOTE | 2022-06-06 10:15 | NUR ---
FIELD FOREMAN NOTES PATIENT TRANSFERRED FROM [facility]. PATIENT IS A/O TIMES 4. NO PAIN NOTED. NO SOB NOTED. NO DISTRESS NOTED. ON TELE MONITOR READING SR. IV ACCESS ON THE LEFT UPPERARM MIDLINE INTACT. ALL NEEDS ATTENDED. ABLE TO MAKE NEEDS KNOWN. SKIN CHECKS DONE. WILL CONTINUE TO MONITOR CLOSELY.
--- NOTE | 2022-06-06 10:36 | NUR ---
COVID 19 ANTIGEN SPECIMEN COLLECTED AND SENT TO LAB.
[2022-06-06] MEDS: CEFEPIME 2 GM in IV D5W 100 ML IV SCH (11:17)
[2022-06-06 12:00] VITALS: BP 140/83
[2022-06-06] MEDS: LEVOFLOXACIN (250MG) 250 MG TABLET PO SCH (12:58)
[2022-06-06] MEDS: IBUPROFEN 200 MG TABLET PO PRN ×2 (13:36→20:25)
[2022-06-06] MEDS: ACETAMINOPHEN 325 MG TABLET PO PRN (15:16)
[2022-06-06 16:00] VITALS: BP 179/83
[2022-06-06] MEDS: DOXYCYCLINE HYCLATE (100 MG) 100 MG TABLET PO SCH (21:00)
[2022-06-06] MEDS: MONTELUKAST SODIUM (10MG) 10 MG TABLET PO SCH (22:00)
[2022-06-06] MEDS: ATORVASTATIN 40 MG TABLET PO SCH (22:00)
[2022-06-06 23:40] VITALS: BP 156/68
[2022-06-07 00:24] VITALS: BP 157/75
[2022-06-07] MEDS: oxyCODONE IR immediate release 5 MG PO PRN ×3 (00:40→20:20)
[2022-06-07] MEDS: ALBUTEROL FS 2.5 MG/0.5 ML VIAL.NEB NEB PRN (01:39)
[2022-06-07 04:00] VITALS: BP 165/97
[2022-06-07] MEDS: ALPRAZOLAM 0.5 MG TABLET PO PRN ×3 (04:24→21:24)
[2022-06-07] MEDS: MENTHOL/CETYLPYRD (CEPACOL) 1 LOZ LOZENGE PO PRN (05:21)
[2022-06-07] MEDS: ACETAMINOPHEN 325 MG TABLET PO PRN (05:49)
--- NOTE | 2022-06-07 07:07 | NUR ---
AWNING HANGER SUPERVISOR CLOSING NOTES PATIENT IS A/O TIMES 3. NO PAIN NOTED. NO SOB NOTED. NO DISTRESS NOTED. ON TELE MONITOR READING SR. IV ACCESS ON THE LEFT UPPER ARM MIDLINE INTACT. ALL DUE MEDS GIVEN ORDERED.ALL NEEDS ATTENDED. ABLE TO MAKE NEEDS KNOWN. SKIN CHECKS DONE. WILL ENDORSE FOR CATHERINE..
--- NOTE | 2022-06-07 07:10 | NUR ---
RN NOTE RECEIVED PATIENT IN BED RESTING ALERT ORIENTED X3 VERBALLY RESPONSIVE ON 2L OXYGEN VIA NASAL CANNULA O2:94% IV SITE IS ON LEFT UPPER ARM MIDLINE INTACT PATENT,INCONTINENT BOWEL/BLADDER SAFETY MEASURE IMPLEMENT BED IN LOW POSITON AND LOCKED,HEAD OF THE BED ELEVATED CALL LIGHT WITHIN REACH CONTINUE TO MONITOR.
[2022-06-07] MEDS: IPRATROPIUM NEB FS 0.5 MG/2.5 ML AMPUL.NEB NEB SCH ×4 (07:29→19:56)
[2022-06-07] MEDS: ALBUTEROL FS 2.5 MG/3 ML VIAL.NEB NEB SCH ×4 (07:29→19:56)
[2022-06-07] MEDS: BUDESONIDE RESPULE INH 0.5 MG/2 ML AMPUL.NEB IH SCH ×2 (07:29→19:30)
[2022-06-07] MEDS: PANTOPRAZOLE 40 MG TABLET.DR PO SCH ×2 (07:56→16:41)
[2022-06-07 08:00] VITALS: BP 162/75
[2022-06-07] MEDS: CITALOPRAM HYDROBROMIDE 10 MG TABLET PO SCH (08:32)
[2022-06-07] MEDS: LOSARTAN POTASSIUM 50 MG TABLET PO SCH ×2 (08:32→17:00)
[2022-06-07] MEDS: methylPREDNISolone SOD SUCC 40 MG/ML VIAL IV SCH (08:33)
[2022-06-07] MEDS: DOXYCYCLINE HYCLATE (100 MG) 100 MG TABLET PO SCH ×2 (08:33→20:19)
[2022-06-07] MEDS: DILTIAZEM HCL CD 120 MG PO SCH (08:33)
[2022-06-07] MEDS: MUPIROCIN OINT 2% 22 GM TUBE NS SCH ×2 (08:42→21:19)
[2022-06-07 08:43] LABS: CALCIUM, SERUM 8.7 mg/dL (8.5-10.1); CREATININE 0.8 mg/dL (0.6-1.3); POTASSIUM 3.3 mmol/L (3.5-5.1)
[2022-06-07] MEDS: NEOMY SULF/BACITRAC ZN/POLY 15 GM TUBE TP SCH (08:44)
--- NOTE | 2022-06-07 09:19 | NUR ---
WOUND CARE CONSULT: RECEIVED ANOTHER CONSULT FOR SKIN TEARS TO ARMS. DEFER TO PLASTIC SURGERY TEAM CURRENTLY ON CASE. DISCUSSED SKIN PROTECTION WITH NURSING STAFF. MD IN AGREEMENT WITH PLAN OF CARE.
[2022-06-07 11:04] LABS: BASOPHILS % (AUTO) 0.1 % (0.0-2.0); HEMATOCRIT 27 % (33-45); HEMOGLOBIN 8.8 g/dL (11.5-14.8); LYMPHOCYTES # (AUTO) 0.3 K/uL (0.8-4.8); LYMPHOCYTES % (AUTO) 1.8 % (20.0-44.0); MEAN CORPUSCULAR HGB CONC 32 g/dl (31.0-36.0); MEAN CORPUSCULAR VOLUME 95 fL (82-100); MONOCYTES % (AUTO) 6.6 % (2.0-12.0); NEUTROPHILS # (AUTO) 13.4 K/uL (1.8-8.9); NEUTROPHILS % (AUTO) 91.5 % (43.0-81.0); PLATELET COUNT (AUTO) 171 K/uL (150-450); RED BLOOD CELL COUNT(AUTO) 2.87 MIL/uL (4.0-5.2); WHITE BLOOD COUNT (AUTO) 14.7 K/uL (4.3-11.0)
[2022-06-07] MEDS: LEVOFLOXACIN (250MG) 250 MG TABLET PO SCH (11:38)
[2022-06-07 11:53] LABS: ABG BASE EXCESS 9.5 mmol/L; ABG OXYGEN SATURATION 96.7 % (92.0-98.5); ABG PCO2 57.8 mmHg (35.0-45.0); ABG PH 7.409 (7.350-7.450); ABG PO2 87.4 mmHg (75.0-100.0); COHb 0.6 % (0.5-1.5); MetHb 0.1 % (0.0-1.5); SITE, ABG Right Brachial; VENT MODE, BG NASAL CANNULA
[2022-06-07] MEDS ORDERED: POTASSIUM CHLORIDE 20 MEQ POWDER PACKET PO ONE (12:00)
[2022-06-07] MEDS: ONDANSETRON HCL/PF 4 MG/2 ML VIAL IVP PRN ×2 (16:41→23:12)
[2022-06-07] MEDS: ACETYLCYSTEINE 10% SOLN 400 MG/4 ML VIAL NEB SCH ×2 (16:43→23:14)
[2022-06-07] MEDS: ENSURE ENLIVE 237 ML LIQUID (VANILLA) PO SCH (17:41)
--- NOTE | 2022-06-07 19:07 | NUR ---
RN NOTE PATIENT REMAINS ALERT ORIENTED X3 VERBALLY RESPONSIVE ON 2L OXYGEN VIA NASAL CANNULA O2:96% NO SOB NOT ACUTE DISTRESS NOTED ALL DUE MEDS GIVEN MD ORDERED,ENDORSE NEXT COMING SHIFT FOR CONTINUATION OF CARE
--- NOTE | 2022-06-07 19:26 | NUR ---
RECEIVED PATIENT IN BED, ALERT/ORIENTED X3, ANXIOUS, NO SOB, ON 2LPM VIA NC, CONCERNED ABOUT PAIN MEDICATIONS AND NEXT DOSE OF XANAX, NOTED BUE ECCHYMOSIS, SKIN TEAR, PROTECTED WITH DRESSING. FAMILY AT THE BEDSIDE, KEPT SAFE, WILL CONTINUE TO MONITOR.
--- NOTE | 2022-06-07 20:06 | NUR ---
[facility] TREATMENT STOPPED AFTER 5 MINUTES DUE TO NAUSEA; RN NOTIFIED. Addendum: 06/07/22 at 2007 by MOMO ORELLANA RT Amended: Links added.
[2022-06-07 20:28] VITALS: BP 158/60
[2022-06-07 20:33] VITALS: BP 158/60
[2022-06-07] MEDS: ATORVASTATIN 40 MG TABLET PO SCH (21:20)
[2022-06-07] MEDS: MONTELUKAST SODIUM (10MG) 10 MG TABLET PO SCH (21:20)
[2022-06-07] MEDS: MORPHINE SULFATE INJ 2 MG/ML DISP.SYRIN IV PRN (22:41)
--- NOTE | 2022-06-07 23:14 | NUR ---
PATIENT ANXIOUS, COMPLAINING OF NAUSEA. ON THE TELE, FROM SR TO AFIB UNCONTROLLED, HR ELEVATED, HIGHEST IS 154, BP 116/65 HR 67, GIVEN MORPHINE 2 MG IV AND ZOFRAN, NOTIFIED MARKET PRESIDENT TIGIST, AWAITING ORDERS. PATIENT IS CALM AT THIS TIME.
--- NOTE | 2022-06-07 23:22 | NUR ---
PATIENT IS RELAXED NOW, APPEARED TO BE ASLEEP, PER TELE, AFIB CONTROLLED, HR 95
[2022-06-08] VITALS: BP 116/65
[2022-06-08] MEDS: ALBUTEROL FS 2.5 MG/0.5 ML VIAL.NEB NEB PRN (01:36)
[2022-06-08] MEDS: oxyCODONE IR immediate release 5 MG PO PRN ×2 (01:48→05:55)
--- NOTE | 2022-06-08 06:12 | NUR ---
ALERT/ORIENTED X3, 2LPM VIA NC, SPO2 88-98%, DISTRESSED WHEN ANXIOUS, SPO2 GOES DOWN, HR GOES UP. WITH EPISODE OF AFIB UNCONTROLLED, HR WENT UP TO 150S. GIVEN OXYCODONE, XANAX, MORPHINE, AT DIFFERENT TIMES, TELEMETRY BECOMES AFIB CONTROLLED. PATIENT ON CARDIZEM Q24HRS. BILATERAL UPPER ARM SKIN TEAR, DRESSING CHANGED, OFFLOADED. CONTINUE O2 TITRATION, BRONCHODILATORS, STEROIDS. ANTICOAGULANT ON HOLD DUE TO BUE SKIN TEAR BLEEDING, PATIENT ALSO HAS BLEEDING ON BOTH NARES. KEPT SAFE, GIVEN PAIN MEDICATION ROUND THE CLOCK, MONITOR SPO2.
--- NOTE | 2022-06-08 07:46 | NUR ---
RN OPENING NOTE PATIENT AWAKE IN BED RESTING AT THE MOMENT A/O X 3. NO S/S OF PAIN NOTED AT THIS TIME. ON 2L OXYGEN VIA NC, NO DISTRESS OR SHORTNESS OF BREATH NOTED. IV ACCESS DOROTEO MIDLINE, INTACT, PATENT AND FLUSHING WELL. PATIENT HAVE A EXTERNAL FOREST NURSERY SUPERVISOR WITH CURRENT READING OF AFIB CONTROL. FALL AND SAFETY MEASURES IN PLACE, BED ALARM ON, BED IN LOW AND LOCK POSITION, CALL LIGHT AND TABLE WITHIN EASY REACH, SIDE RAILS X2. WILL CONTINUE TO MONITOR.
[2022-06-08 07:58] LABS: CHLORIDE 93 mmol/L (98-107); CREATININE 0.4 mg/dL (0.6-1.3); GLUCOSE 89 mg/dL (74-106); POTASSIUM 3.5 mmol/L (3.5-5.1); SODIUM SERUM 133 mmol/L (136-145); UREA NITROGEN, BLOOD 9 mg/dL (7-18)
[2022-06-08 08:00] VITALS: BP 157/64
[2022-06-08 08:11] LABS: CARBON DIOXIDE 41 mmol/L (21-32)
[2022-06-08] MEDS: ACETYLCYSTEINE 10% SOLN 400 MG/4 ML VIAL NEB SCH ×3 (08:19→23:54)
[2022-06-08] MEDS: ALBUTEROL FS 2.5 MG/3 ML VIAL.NEB NEB SCH ×4 (08:19→19:41)
[2022-06-08] MEDS: IPRATROPIUM NEB FS 0.5 MG/2.5 ML AMPUL.NEB NEB SCH ×4 (08:20→19:41)
[2022-06-08] MEDS: BUDESONIDE RESPULE INH 0.5 MG/2 ML AMPUL.NEB IH SCH ×2 (08:20→19:40)
--- NOTE | 2022-06-08 08:30 | NUR ---
RN NOTE LAB CALLED CO2: 41, DOCTOR SAW PATIENT AT BED SIDE, CHARGE NURSE AWARE. WILL CONTINUE TO MONITOR.
[2022-06-08] MEDS: DILTIAZEM HCL CD 120 MG PO SCH (09:04)
[2022-06-08] MEDS: PANTOPRAZOLE 40 MG TABLET.DR PO SCH ×2 (09:04→15:36)
[2022-06-08] MEDS: CITALOPRAM HYDROBROMIDE 10 MG TABLET PO SCH (09:05)
[2022-06-08] MEDS: DOXYCYCLINE HYCLATE (100 MG) 100 MG TABLET PO SCH ×2 (09:05→21:01)
[2022-06-08] MEDS: LOSARTAN POTASSIUM 50 MG TABLET PO SCH ×2 (09:06→17:06)
[2022-06-08] MEDS: ENSURE ENLIVE 237 ML LIQUID (VANILLA) PO SCH ×3 (09:06→17:06)
[2022-06-08] MEDS: methylPREDNISolone SOD SUCC 40 MG/ML VIAL IV SCH (09:06)
[2022-06-08] MEDS: NEOMY SULF/BACITRAC ZN/POLY 15 GM TUBE TP SCH (09:07)
[2022-06-08] MEDS: MUPIROCIN OINT 2% 22 GM TUBE NS SCH ×2 (09:07→21:12)
[2022-06-08] MEDS ORDERED: AZTREONAM 1 G VIAL IM SCH (10:00)
[2022-06-08] MEDS: MORPHINE SULFATE INJ 2 MG/ML DISP.SYRIN IV PRN (10:14)
[2022-06-08 11:06] LABS: BASOPHILS % (AUTO) 0.1 % (0.0-2.0); HEMATOCRIT 26 % (33-45); HEMOGLOBIN 8.4 g/dL (11.5-14.8); LYMPHOCYTES # (AUTO) 0.2 K/uL (0.8-4.8); MEAN CORPUSCULAR HGB CONC 32 g/dl (31.0-36.0); MEAN CORPUSCULAR VOLUME 95 fL (82-100); MONOCYTES # (AUTO) 0.7 K/uL (0.1-1.30); NEUTROPHILS % (AUTO) 91.9 % (43.0-81.0); PLATELET COUNT (AUTO) 138 K/uL (150-450); RED BLOOD CELL COUNT(AUTO) 2.75 MIL/uL (4.0-5.2); WHITE BLOOD COUNT (AUTO) 11.9 K/uL (4.3-11.0)
[2022-06-08 12:05] VITALS: BP 148/62
[2022-06-08] MEDS: LEVOFLOXACIN (250MG) 250 MG TABLET PO SCH (12:23)
[2022-06-08] MEDS: MEROPENEM 1 G in IV NS 0.9% 100 ML IV SCH ×2 (13:29→20:59)
[2022-06-08] MEDS: ALPRAZOLAM 0.5 MG TABLET PO PRN ×2 (13:35→15:35)
--- NOTE | 2022-06-08 13:40 | NUR ---
RN NOTE PATIENT ASKED FOR XANAX BUT AFTER GETTING MEDICATION PATIENT REFUSE TO TAKE IT AND SAID SHE WOULD LIKE IT LATER. MEDICATION WAS RETURNED AND WIDENESS BY MAYURI JAIN.
[2022-06-08 16:00] VITALS: BP 138/56
--- NOTE | 2022-06-08 17:47 | NUR ---
RN NOTE PATIENT AND PATIENT'S SON IS REQUESTING FOR PATIENT NOT TO HAVE MORPHINE PLEASE. PATIENT DOES NOT WANT MORPHINE OR OXY IR. PATIENT WILL LIKE NORCO FOR PAIN. DOCTOR CHACHO QUICK WAS NOTIFIED AND ORDERED NORCO 10/325MG PO Q4HRS PRN, ORDERED WAS PLACED. CHARGE NURSE AWARE.
[2022-06-08] MEDS: HYDROCODONE/APAP 10/325MG TABLET PO PRN ×2 (18:35→23:49)
--- NOTE | 2022-06-08 18:48 | NUR ---
RN CLOSING NOTE PATIENT AWAKE IN BED RESTING AT THE MOMENT A/O X 3. 4/10 PAIN LEVEL, PAIN MEDICATION WAS GIVEN DURING THE SHIFT. ON 2L OXYGEN VIA NC, NO DISTRESS OR SHORTNESS OF BREATH NOTED. IV ACCESS DOROTEO MIDLINE, INTACT, PATENT AND FLUSHING WELL. PATIENT HAVE A EXTERNAL CLUB CAR ATTENDANT WITH CURRENT READING OF SR WITH PVC AND HR OF 96. SCHEDULE MEDICATIONS WAS GIVEN. WOUND CARE IMPLEMENTED. PATIENT WAS TURNED AND REPOSITIONED PER PROTOCOL. FALL AND SAFETY MEASURES IN PLACE, BED ALARM ON, BED IN LOW AND LOCK POSITION, CALL LIGHT AND TABLE WITHIN EASY REACH, SIDE RAILS X2. WILL ENDORSE TO HUMAN RESOURCE ADVISOR.
[2022-06-08 20:00] VITALS: BP 143/68
--- NOTE | 2022-06-08 20:00 | NUR ---
RECEIVED PATIENT IN BED, ALERT/ORIENTED X3, 2LPM VIA NC, COPD, CHRONIC PAIN, ANXIOUS, BUE ECCHYMOSIS, SKIN TEAR, WITH DRESSING, INCONTINENT OF BOWEL AND BLADDER. DOROTEO MIDLINE, HL. KEPT ON HIGH PERDOMO'S, CALL LIGHT WITHIN REACH.
[2022-06-08] MEDS: IBUPROFEN 200 MG TABLET PO PRN (20:48)
[2022-06-08] MEDS: ATORVASTATIN 40 MG TABLET PO SCH (21:12)
[2022-06-08] MEDS: MONTELUKAST SODIUM (10MG) 10 MG TABLET PO SCH (21:12)
--- NOTE | 2022-06-08 23:54 | NUR ---
RT Gave 2330 Mucomyst as scheduled. Scanner not working.
[2022-06-09] MEDS: ALPRAZOLAM 0.5 MG TABLET PO PRN ×3 (01:02→16:44)
[2022-06-09] MEDS: MEROPENEM 1 G in IV NS 0.9% 100 ML IV SCH ×3 (04:48→21:11)
[2022-06-09] MEDS: HYDROCODONE/APAP 10/325MG TABLET PO PRN ×4 (05:14→19:55)
[2022-06-09] MEDS: IPRATROPIUM NEB FS 0.5 MG/2.5 ML AMPUL.NEB NEB SCH ×4 (07:16→19:37)
[2022-06-09] MEDS: BUDESONIDE RESPULE INH 0.5 MG/2 ML AMPUL.NEB IH SCH ×2 (07:16→19:37)
[2022-06-09] MEDS: ACETYLCYSTEINE 10% SOLN 400 MG/4 ML VIAL NEB SCH ×3 (07:16→23:02)
[2022-06-09] MEDS: ALBUTEROL FS 2.5 MG/3 ML VIAL.NEB NEB SCH ×4 (07:16→19:37)
[2022-06-09] MEDS: PANTOPRAZOLE 40 MG TABLET.DR PO SCH ×2 (07:38→15:39)
--- NOTE | 2022-06-09 07:51 | NUR ---
RN OPENING NOTE PATIENT AWAKE IN BED RESTING AT THE MOMENT A/O X 3. NO S/S OF PAIN NOTED AT THIS TIME. ON 2L OXYGEN VIA NC, NO DISTRESS OR SHORTNESS OF BREATH NOTED. IV ACCESS DOROTEO MIDLINE, INTACT, PATENT AND FLUSHING WELL. PATIENT HAVE A EXTERNAL ACCOUNT EXECUTIVE AGRIBUSINESS WITH CURRENT READING OF SR WITH PVC AND HR OF 96. FALL AND SAFETY MEASURES IN PLACE, BED ALARM ON, BED IN LOW AND LOCK POSITION, CALL LIGHT AND TABLE WITHIN EASY REACH, SIDE RAILS UP X2. WILL CONTINUE TO MONITOR.
[2022-06-09] MEDS: LOSARTAN POTASSIUM 50 MG TABLET PO SCH ×2 (08:11→16:44)
[2022-06-09] MEDS: DOXYCYCLINE HYCLATE (100 MG) 100 MG TABLET PO SCH ×2 (08:11→21:12)
[2022-06-09] MEDS: methylPREDNISolone SOD SUCC 40 MG/ML VIAL IV SCH (08:12)
[2022-06-09] MEDS: DILTIAZEM HCL CD 120 MG PO SCH (08:12)
[2022-06-09] MEDS: CITALOPRAM HYDROBROMIDE 10 MG TABLET PO SCH (08:12)
[2022-06-09] MEDS: ENSURE ENLIVE 237 ML LIQUID (VANILLA) PO SCH ×3 (08:12→16:46)
[2022-06-09] MEDS: MUPIROCIN OINT 2% 22 GM TUBE NS SCH ×2 (08:13→21:12)
[2022-06-09 08:17] LABS: BASOPHILS % (AUTO) 0.1 % (0.0-2.0); HEMATOCRIT 26 % (33-45); HEMOGLOBIN 8.6 g/dL (11.5-14.8); LYMPHOCYTES # (AUTO) 0.1 K/uL (0.8-4.8); LYMPHOCYTES % (AUTO) 1.3 % (20.0-44.0); MEAN CORPUSCULAR HGB CONC 33 g/dl (31.0-36.0); MEAN CORPUSCULAR VOLUME 95 fL (82-100); MONOCYTES # (AUTO) 0.6 K/uL (0.1-1.30); NEUTROPHILS # (AUTO) 9.9 K/uL (1.8-8.9); NEUTROPHILS % (AUTO) 92.6 % (43.0-81.0); PLATELET COUNT (AUTO) 136 K/uL (150-450); RED BLOOD CELL COUNT(AUTO) 2.78 MIL/uL (4.0-5.2); WHITE BLOOD COUNT (AUTO) 10.7 K/uL (4.3-11.0)
[2022-06-09] MEDS: ONDANSETRON HCL/PF 4 MG/2 ML VIAL IVP PRN (08:30)
[2022-06-09 08:34] VITALS: BP 138/67
[2022-06-09 08:38] LABS: CALCIUM, SERUM 8.2 mg/dL (8.5-10.1); CREATININE 0.7 mg/dL (0.6-1.3); POTASSIUM 3.5 mmol/L (3.5-5.1)
--- NOTE | 2022-06-09 10:18 | NUR ---
RN NOTE PATIENT IS COMPLAINING OF UPSET STOMACH, MAALOX WAS ORDER, CHARGE NURSE AWARE. WILL CONTINUE TO MONITOR.
[2022-06-09] MEDS: MAG HYDROX/AL HYDROX/SIMETH 30 ML UDC PO PRN (10:59)
[2022-06-09] MEDS: LEVOFLOXACIN (250MG) 250 MG TABLET PO SCH (11:30)
[2022-06-09 12:00] VITALS: BP 130/72
[2022-06-09 16:10] VITALS: BP 132/67
--- NOTE | 2022-06-09 18:40 | NUR ---
RN CLOSING NOTE PATIENT AWAKE IN BED RESTING AT THE MOMENT A/O X 3. 4/10 PAIN LEVEL, PAIN MEDICATION WAS GIVEN DURING THE SHIFT. ON 1L OXYGEN VIA NC, NO DISTRESS OR SHORTNESS OF BREATH NOTED. IV ACCESS DOROTEO MIDLINE, INTACT, PATENT AND FLUSHING WELL. PATIENT HAVE A EXTERNAL CLOTH GRADER SUPERVISOR WITH CURRENT READING OF ST AND HR OF 106. SCHEDULE MEDICATIONS WAS GIVEN. WOUND CARE IMPLEMENTED. PATIENT WAS TURNED AND REPOSITIONED PER PROTOCOL. FALL AND SAFETY MEASURES IN PLACE, BED ALARM ON, BED IN LOW AND LOCK POSITION, CALL LIGHT AND TABLE WITHIN EASY REACH, SIDE RAILS UP X2. WILL ENDORSE TO CANAL DRIVER.
--- NOTE | 2022-06-09 19:30 | NUR ---
noc rn opening note received patient in bed with eyes closed, easy to arouse. a/ox3. no s/s of apparent distress on 1lpm of o2 via nc. patient c/o 03/16 pain-- will medicate. tele monitor reading sr with 90bpm. call light within reach. safety in place. will continue with the plan of care for patient.
[2022-06-09 20:00] VITALS: BP 142/61
[2022-06-09] MEDS: ATORVASTATIN 40 MG TABLET PO SCH (21:44)
[2022-06-09] MEDS: MONTELUKAST SODIUM (10MG) 10 MG TABLET PO SCH (21:45)
--- NOTE | 2022-06-09 23:03 | NUR ---
Pt refused Q8 Mucomyst. States she cannot stand the smell. SPO2 95%. RN notified and aware.
[2022-06-09] MEDS: TRAZODONE 50 MG TABLET PO PRN (23:31)
--- NOTE | 2022-06-09 23:35 | NUR ---
noc rn note patient request for Trazodone. Given PRN as ordered.
--- NOTE | 2022-06-10 | NUR ---
noc rn note refused midnight v/s. will do in the am.
[2022-06-10] MEDS: HYDROCODONE/APAP 10/325MG TABLET PO PRN ×4 (04:40→20:49)
[2022-06-10] MEDS: MEROPENEM 1 G in IV NS 0.9% 100 ML IV SCH ×3 (04:48→21:03)
[2022-06-10] MEDS: ALBUTEROL FS 2.5 MG/0.5 ML VIAL.NEB NEB PRN (05:40)
[2022-06-10] MEDS: ALPRAZOLAM 0.5 MG TABLET PO PRN ×2 (05:52→13:28)
--- NOTE | 2022-06-10 07:20 | NUR ---
RN OPENING NOTE PATIENT AWAKE IN BED RESTING AT THE MOMENT A/O X 3. NO S/S OF PAIN NOTED AT THIS TIME. ON 2L OXYGEN VIA NC, NO DISTRESS OR SHORTNESS OF BREATH NOTED. IV ACCESS DOROTEO MIDLINE, INTACT, PATENT AND FLUSHING WELL. PATIENT HAVE A EXTERNAL PEER SPECIALIST WITH CURRENT READING OF SR W HR OF 90. FALL AND SAFETY MEASURES IN PLACE, BED ALARM ON, BED IN LOW AND LOCK POSITION, CALL LIGHT AND TABLE WITHIN EASY REACH, SIDE RAILS UP X2. WILL CONTINUE TO MONITOR.
[2022-06-10] MEDS: BUDESONIDE RESPULE INH 0.5 MG/2 ML AMPUL.NEB IH SCH ×2 (07:30→19:41)
[2022-06-10] MEDS: ACETYLCYSTEINE 10% SOLN 400 MG/4 ML VIAL NEB SCH ×3 (07:35→23:30)
--- NOTE | 2022-06-10 07:37 | NUR ---
noc rn note needs attended. report given to sissy Pugh for continuity of patient care.
[2022-06-10 08:00] VITALS: BP 142/68
[2022-06-10] MEDS: IPRATROPIUM NEB FS 0.5 MG/2.5 ML AMPUL.NEB NEB SCH ×4 (08:44→19:41)
[2022-06-10] MEDS: ALBUTEROL FS 2.5 MG/3 ML VIAL.NEB NEB SCH ×4 (08:44→19:41)
[2022-06-10] MEDS: ENSURE ENLIVE 237 ML LIQUID (VANILLA) PO SCH ×3 (08:58→16:37)
[2022-06-10] MEDS: PANTOPRAZOLE 40 MG TABLET.DR PO SCH ×2 (08:58→16:36)
[2022-06-10] MEDS: methylPREDNISolone SOD SUCC 40 MG/ML VIAL IV SCH (09:04)
[2022-06-10] MEDS: CITALOPRAM HYDROBROMIDE 10 MG TABLET PO SCH (09:04)
[2022-06-10] MEDS: DILTIAZEM HCL CD 120 MG PO SCH (09:05)
[2022-06-10] MEDS: DOXYCYCLINE HYCLATE (100 MG) 100 MG TABLET PO SCH ×2 (09:06→21:10)
[2022-06-10] MEDS: LOSARTAN POTASSIUM 50 MG TABLET PO SCH ×2 (09:06→16:36)
[2022-06-10] MEDS: MUPIROCIN OINT 2% 22 GM TUBE NS SCH ×2 (09:08→21:09)
[2022-06-10] MEDS: LEVOFLOXACIN (250MG) 250 MG TABLET PO SCH (11:12)
[2022-06-10 12:00] VITALS: BP 140/60
[2022-06-10 16:00] VITALS: BP 146/60
--- NOTE | 2022-06-10 18:58 | NUR ---
RN CLOSING NOTE PATIENT AWAKE IN BED RESTING AT THE MOMENT A/O X 3.ON OXYGEN AT 2LPM VIA NC, NO DISTRESS OR SHORTNESS OF BREATH NOTED. IV ACCESS DOROTEO MIDLINE, INTACT, PATENT AND FLUSHING WELL. PATIENT HAVE A EXTERNAL ORIENTAL RUG STRETCHER WITH CURRENT READING OF SR AND HR OF 90. SCHEDULE MEDICATIONS WAS GIVEN. WOUND CARE IMPLEMENTED. PATIENT WAS TURNED AND REPOSITIONED PER PROTOCOL. FALL AND SAFETY MEASURES IN PLACE, BED ALARM ON, BED IN LOW AND LOCK POSITION, CALL LIGHT AND TABLE WITHIN EASY REACH, SIDE RAILS UP X2. WILL ENDORSE TO FISH CUTTER.
[2022-06-10 20:00] VITALS: BP 143/69
[2022-06-10] MEDS: MONTELUKAST SODIUM (10MG) 10 MG TABLET PO SCH (21:10)
[2022-06-10] MEDS: ATORVASTATIN 40 MG TABLET PO SCH (21:10)
[2022-06-10] MEDS: TRAZODONE 50 MG TABLET PO PRN (21:36)
--- NOTE | 2022-06-10 21:40 | NUR ---
noc rn note patient request for trazodone 50 mg. Given PRN as ordered. patient teaching about risk for sedation done. patient acknowledged.
--- NOTE | 2022-06-11 00:45 | NUR ---
noc rn note refused midnight v/s. will check in the morning per patient request.
[2022-06-11] MEDS: ALPRAZOLAM 0.5 MG TABLET PO PRN ×3 (01:40→20:25)
--- NOTE | 2022-06-11 01:40 | NUR ---
noc rn note patient woke up at this time crying for help. very anxious because of a bad dream. patient requested for xanax at this time. Given as ordered PRN.
[2022-06-11 04:00] VITALS: BP 145/62
[2022-06-11] MEDS: MEROPENEM 1 G in IV NS 0.9% 100 ML IV SCH ×3 (05:05→20:16)
[2022-06-11] MEDS: HYDROCODONE/APAP 10/325MG TABLET PO PRN ×5 (05:52→22:57)
[2022-06-11 07:32] LABS: HEMATOCRIT 31 % (33-45); HEMOGLOBIN 9.7 g/dL (11.5-14.8); LYMPHOCYTES # (AUTO) 0.2 K/uL (0.8-4.8); LYMPHOCYTES % (AUTO) 1.2 % (20.0-44.0); MEAN CORPUSCULAR HGB CONC 32 g/dl (31.0-36.0); MEAN CORPUSCULAR VOLUME 97 fL (82-100); MONOCYTES # (AUTO) 0.8 K/uL (0.1-1.30); MONOCYTES % (AUTO) 6.1 % (2.0-12.0); NEUTROPHILS # (AUTO) 12.7 K/uL (1.8-8.9); NEUTROPHILS % (AUTO) 92.7 % (43.0-81.0); PLATELET COUNT (AUTO) 139 K/uL (150-450); RED BLOOD CELL COUNT(AUTO) 3.15 MIL/uL (4.0-5.2); WHITE BLOOD COUNT (AUTO) 13.7 K/uL (4.3-11.0)
--- NOTE | 2022-06-11 07:44 | NUR ---
noc rn note Needs attended. report given to sissy Ludwig for continuity of care.
[2022-06-11] MEDS: ALBUTEROL FS 2.5 MG/3 ML VIAL.NEB NEB SCH ×4 (07:47→19:45)
[2022-06-11] MEDS: IPRATROPIUM NEB FS 0.5 MG/2.5 ML AMPUL.NEB NEB SCH ×4 (07:47→19:45)
[2022-06-11] MEDS: BUDESONIDE RESPULE INH 0.5 MG/2 ML AMPUL.NEB IH SCH ×2 (07:47→19:45)
[2022-06-11] MEDS: ACETYLCYSTEINE 10% SOLN 400 MG/4 ML VIAL NEB SCH ×3 (07:47→23:30)
--- NOTE | 2022-06-11 07:50 | NUR ---
RETAIL AGENT OPENING NOTE RECEIVED PATIENT SLEEPING IN BED, EASILY AWAKENED. A/O X 3. NO S/S OF PAIN NOTED AT THIS TIME. ON 2L OXYGEN VIA NC, NO DISTRESS OR SHORTNESS OF BREATH NOTED AT THIS TIME. IV ACCESS DOROTEO MIDLINE, INTACT, PATENT AND FLUSHING WELL. PATIENT HAVE A EXTERNAL TRUCK FARMER. SAFETY PRECAUTIONS IN PLACE. BED IN LOWEST AND LOCKED POSITION, HOB ELEVATED, SIDE RAILS UP X2, AND CALL LIGHT AND TABLE WITHIN REACH. WILL CONTINUE TO MONITOR AND ASSIST.
[2022-06-11 08:00] VITALS: BP 132/66
[2022-06-11 08:12] LABS: CALCIUM, SERUM 8.6 mg/dL (8.5-10.1); CREATININE 0.6 mg/dL (0.6-1.3); POTASSIUM 4.1 mmol/L (3.5-5.1)
[2022-06-11] MEDS: methylPREDNISolone SOD SUCC 40 MG/ML VIAL IV SCH (08:46)
[2022-06-11] MEDS: CITALOPRAM HYDROBROMIDE 10 MG TABLET PO SCH (08:47)
[2022-06-11] MEDS: ENSURE ENLIVE 237 ML LIQUID (VANILLA) PO SCH ×3 (08:47→16:34)
[2022-06-11] MEDS: DOXYCYCLINE HYCLATE (100 MG) 100 MG TABLET PO SCH ×2 (08:47→20:14)
[2022-06-11] MEDS: PANTOPRAZOLE 40 MG TABLET.DR PO SCH ×2 (08:47→15:57)
[2022-06-11] MEDS: DILTIAZEM HCL CD 120 MG PO SCH (08:48)
[2022-06-11] MEDS: LOSARTAN POTASSIUM 50 MG TABLET PO SCH ×2 (08:48→16:34)
[2022-06-11] MEDS: LEVOFLOXACIN (250MG) 250 MG TABLET PO SCH (11:21)
[2022-06-11] MEDS: MAG HYDROX/AL HYDROX/SIMETH 30 ML UDC PO PRN (14:49)
--- NOTE | 2022-06-11 18:40 | NUR ---
LEAD ETL DEVELOPER CLOSING NOTE PATIENT RESTING IN BED, EASILY AWAKENED. A/O X 3. NO S/S OF PAIN NOTED AT THIS TIME. ON 1L OXYGEN VIA NC, NO DISTRESS OR SHORTNESS OF BREATH NOTED AT THIS TIME. IV ACCESS DOROTEO MIDLINE, INTACT, PATENT AND FLUSHING WELL. PATIENT HAVE A EXTERNAL TOP INVENTORY CONTROL EXECUTIVE READING SR @97 BPM WITH PAC. KEPT PATIENT CLEAN AND DRY. WOUND CARE IMPLEMENTED. WOUND CONSULT REQUESTED FOR RLE. SAFETY PRECAUTIONS IN PLACE. BED IN LOWEST AND LOCKED POSITION, HOB ELEVATED, SIDE RAILS UP X2, CALL LIGHT AND TABLE WITHIN REACH. WILL ENDORSE TO GRAIN OILSEED OR PASTURE GROWER NURSE FOR CATHERINE.
--- NOTE | 2022-06-11 19:30 | NUR ---
HAIR CUTTER OPENING NOTES RECEIVED PATIENT LAYING IN BED AWAKE, HOB ELEVATED. A/O X3 WITH PERIODS OF FORGETFULNESS. MILD SOB NOTED, ON O2 AT 1LPM VIA NASAL CANULA. NOT IN APPARENT DISTRESS. C/O GENERALIZED PAIN BUT PATIENT JUST RECEIVED HER PRN NORCO. ON TELE MONITOR READING SINUS RHYTHM WITH PAC AT 91 BPM. HAS LEFT UPPER ARM MIDLINE #18G AND SALINE LOCKED. NO S/S OF INFILTRATION NOTED. PUREWICK ATTACHED TO CONTINUOUS SUCTION. WOUND DRESSING ON BILATERAL ARMS C/D/I. SAFETY PRECAUTIONS IN PLACE: BED LOW AND LOCKED, SIDE RAILS UP X3, CALL LIGHT WITHIN REACH. WILL CONTINUE POC.
[2022-06-11 20:00] VITALS: BP 150/61
--- NOTE | 2022-06-11 20:25 | NUR ---
MACHINE PACK ASSEMBLER NOTES PATIENT IS ANXIOUS AND REQUESTED FOR HER XANAX 0.5MG. ADMINISTERED AND TOLERATED WELL. PATIENT IS MONITORING HER PRN MEDS AND ASKING FOR IT WHENEVER DUE.
--- NOTE | 2022-06-11 20:30 | NUR ---
POWDER WORKER NOTES PATIENT SEEN BY LEEANNA AVILA FOR HER BILATERAL UPPER EXTREMITY WOUND.
[2022-06-11] MEDS: ATORVASTATIN 40 MG TABLET PO SCH (21:33)
[2022-06-11] MEDS: MONTELUKAST SODIUM (10MG) 10 MG TABLET PO SCH (21:33)
[2022-06-11] MEDS: TRAZODONE 50 MG TABLET PO PRN (21:34)
--- NOTE | 2022-06-11 21:34 | NUR ---
HUMAN RESOURCES COMPLIANCE MANAGER NOTES PATIENT VERBALIZED SHE IS HAVING TROUBLE SLEEPING. REQUESTED FOR A SLEEPING PILL. PRN DESYREL 50MG GIVEN.
--- NOTE | 2022-06-11 22:57 | NUR ---
PULP BLEACHER NOTES ADMINISTERED PRN NORCO 10/325 FOR C/O GENERALIZED PAIN 01/13. WILL CONTINUE TO MONITOR.
[2022-06-12 00:25] VITALS: BP 151/82
[2022-06-12 04:00] VITALS: BP 129/51
[2022-06-12] MEDS: MEROPENEM 1 G in IV NS 0.9% 100 ML IV SCH ×3 (04:13→20:57)
[2022-06-12] MEDS: ALPRAZOLAM 0.5 MG TABLET PO PRN ×2 (04:34→14:33)
--- NOTE | 2022-06-12 04:42 | NUR ---
WATCHMAKING TEACHER NOTES PATIENT IS VERY ANXIOUS, VERBALIZED SHE IS AFRAID BECAUSE SHE THINKS THAT THE LORD IS TAKING HER AND THERE ARE BAD GUYS. SHE DOESN'T KNOW WHERE SHE IS AT. RE-ORIENTED PATIENT AND GAVE PRN XANAX 0.5MG.
[2022-06-12 07:00] VITALS: BP 143/91
--- NOTE | 2022-06-12 07:07 | NUR ---
EMERGENCY DEPARTMENT MANAGER CLOSING NOTES PATIENT LAYING IN BED COMFORTABLY. ABLE TO VERBALIZED NEEDS. VERY ANXIOUS AND NEEDY BUT STABLE THROUGHOUT THE SHIFT. AFEBRILE. ON TELE MONITOR READING SINUS RHYTHM WITH PAC AT 98 BPM. LEFT UPPER ARM MIDLINE #18G INTACT, PATENT AND FLUSHING. URINE OUTPUT OF 750 ML NOTED, NO HEMATURIA OR SEDIMENTS NOTED. ALL DUE MEDS GIVEN AND NEEDS ATTENDED. SAFETY PRECAUTIONS MAINTAINED. WILL ENDORSE TO NEXT SHIFT FOR CATHERINE.
[2022-06-12 07:13] LABS: BASOPHILS % (AUTO) 0.1 % (0.0-2.0); EOSINOPHILS % (AUTO) 0.1 % (0.0-6.0); HEMATOCRIT 28 % (33-45); HEMOGLOBIN 8.9 g/dL (11.5-14.8); LYMPHOCYTES # (AUTO) 0.2 K/uL (0.8-4.8); LYMPHOCYTES % (AUTO) 1.5 % (20.0-44.0); MEAN CORPUSCULAR HGB CONC 32 g/dl (31.0-36.0); MEAN CORPUSCULAR VOLUME 96 fL (82-100); MONOCYTES % (AUTO) 5.8 % (2.0-12.0); NEUTROPHILS # (AUTO) 15.5 K/uL (1.8-8.9); NEUTROPHILS % (AUTO) 92.5 % (43.0-81.0); PLATELET COUNT (AUTO) 162 K/uL (150-450); RED BLOOD CELL COUNT(AUTO) 2.89 MIL/uL (4.0-5.2); WHITE BLOOD COUNT (AUTO) 16.8 K/uL (4.3-11.0)
[2022-06-12 07:30] LABS: CALCIUM, SERUM 8.7 mg/dL (8.5-10.1); CREATININE 0.6 mg/dL (0.6-1.3); POTASSIUM 4.3 mmol/L (3.5-5.1)
[2022-06-12] MEDS: ACETYLCYSTEINE 10% SOLN 400 MG/4 ML VIAL NEB SCH ×3 (07:35→23:30)
[2022-06-12] MEDS: IPRATROPIUM NEB FS 0.5 MG/2.5 ML AMPUL.NEB NEB SCH ×4 (07:36→20:47)
[2022-06-12] MEDS: ALBUTEROL FS 2.5 MG/3 ML VIAL.NEB NEB SCH ×4 (07:36→20:47)
[2022-06-12] MEDS: BUDESONIDE RESPULE INH 0.5 MG/2 ML AMPUL.NEB IH SCH ×2 (07:37→20:47)
--- NOTE | 2022-06-12 07:53 | NUR ---
RN OPENING NOTE PATIENT AWAKE IN BED RESTING AT THE MOMENT A/O X 3. NO S/S OF PAIN NOTED AT THIS TIME. ON 1L OXYGEN VIA NC, NO DISTRESS OR SHORTNESS OF BREATH NOTED. IV ACCESS DOROTEO MIDLINE, INTACT, PATENT AND FLUSHING WELL. PATIENT HAVE A EXTERNAL INDUSTRIAL COMMERCIAL GROUNDSKEEPER WITH CURRENT READING OF SR WITH PAC AND HR OF 98. FALL AND SAFETY MEASURES IN PLACE, BED ALARM ON, BED IN LOW AND LOCK POSITION, CALL LIGHT AND TABLE WITHIN EASY REACH, SIDE RAILS X2. WILL CONTINUE TO MONITOR.
[2022-06-12] MEDS: DOXYCYCLINE HYCLATE (100 MG) 100 MG TABLET PO SCH ×2 (08:31→20:57)
[2022-06-12] MEDS: methylPREDNISolone SOD SUCC 40 MG/ML VIAL IV SCH (08:31)
[2022-06-12] MEDS: PANTOPRAZOLE 40 MG TABLET.DR PO SCH ×2 (08:31→16:42)
[2022-06-12] MEDS: DILTIAZEM HCL CD 120 MG PO SCH (08:31)
--- NOTE | 2022-06-12 08:31 | NUR ---
WOUND CARE CONSULT: PT SEEN FOR REDNESS WITH EDEMA TO LOWER LEGS. PT WAS NOTED TO HAVE FRAGILE SKIN WITH DISCOLORATION OF LOWER AND UPPER EXTREMITIES ON ADMISSION. DPM CONSULT CALLED TO DR SCHACHTER. ORANTES IN AGREEMENT WITH PLAN OF CARE.
[2022-06-12] MEDS: HYDROCODONE/APAP 10/325MG TABLET PO PRN ×3 (08:32→17:07)
[2022-06-12] MEDS: LOSARTAN POTASSIUM 50 MG TABLET PO SCH ×2 (08:32→16:43)
[2022-06-12] MEDS: CITALOPRAM HYDROBROMIDE 10 MG TABLET PO SCH (08:32)
[2022-06-12] MEDS: ENSURE ENLIVE 237 ML LIQUID (VANILLA) PO SCH ×3 (08:33→16:43)
[2022-06-12] MEDS: LEVOFLOXACIN (250MG) 250 MG TABLET PO SCH (11:23)
[2022-06-12 12:00] VITALS: BP 160/77
[2022-06-12 16:00] VITALS: BP 103/38
--- NOTE | 2022-06-12 19:00 | NUR ---
ROASTMASTER OPENING NOTE PATIENT IS AWAKE, SITTING IN BED, TALKING WITH HER SON. SHE IS ALERT AND ORIENTED, BUT FORGETFUL. A/O X 3. SHE IS ON 1L OXYGEN VIA NC, BREATHING EVENLY AND UNLABORED. NO S/S OF DISTRESS OR SHORTNESS. PATIENT DENIES OF HAVING PAIN NOW. IV ACCESS IS AT HER L UA MIDLINE,#18G, SL.PATENT AND INTACT. PATIENT HAVE A EXTERNAL STONE LATHE OPERATOR WITH CURRENT READING OF SR AND HR IS AOUND 80s. PATIENT IS INSTRUCTED TO USE THE CALL HAN FOR ASSISTANCE OR HELP. SAFETY MEASURES IN PLACE: BED ALARM IS ON, BED IN LOWEST AND LOCK POSITION, CALL LIGHT AND TABLE WITHIN EASY REACH, SIDE RAILS X2. WILL CONTINUE TO MONITOR THE PATIENT AND PROVIDE THE CARE SHE NEEDS.
--- NOTE | 2022-06-12 19:43 | NUR ---
RN CLOSING NOTE PATIENT AWAKE IN BED RESTING AT THE MOMENT A/O X 3. NO S/S OF PAIN NOTED AT THIS TIME, PAIN MEDICATIONS GIVEN DURING THE SHIFT. ON 1L OXYGEN VIA NC, NO DISTRESS OR SHORTNESS OF BREATH NOTED. IV ACCESS DOROTEO MIDLINE, INTACT, PATENT AND FLUSHING WELL. PATIENT HAVE A EXTERNAL CHIEF CLERK SHELTER WITH CURRENT READING OF SR AND HR OF 90. SCHEDULE MEDICATIONS ADMINISTERED. WOUND CARE IMPLEMENTED. PATIENT WAS TURNED AND REPOSITIONED PER PROTOCOL. FALL AND SAFETY MEASURES IN PLACE, BED ALARM ON, BED IN LOW AND LOCK POSITION, CALL LIGHT AND TABLE WITHIN EASY REACH, SIDE RAILS X2. WILL ENDORSE TO GOSPEL WORKER..
[2022-06-12 20:00] VITALS: BP 142/72
[2022-06-12] MEDS: ATORVASTATIN 40 MG TABLET PO SCH (21:47)
[2022-06-12] MEDS: MONTELUKAST SODIUM (10MG) 10 MG TABLET PO SCH (21:47)
[2022-06-12] MEDS: TRAZODONE 50 MG TABLET PO PRN (21:47)
[2022-06-13] VITALS: BP 154/70
[2022-06-13] MEDS: HYDROCODONE/APAP 10/325MG TABLET PO PRN ×5 (00:16→18:48)
--- NOTE | 2022-06-13 00:17 | NUR ---
SPORTS INFORMATION DIRECTOR NOTE HYDROCODONE BITRATE AND ACETAMINOPHEN 10 MG / 325MG WAS GIVEN TO THE PATIENT AT 7 PO. FORGOT TO SCAN THE MEDICATION. GET THE MEDICATION WRAPPER IN PATIENT'S ROOM, SCANNED AND DOCUMENTED.
[2022-06-13] MEDS: ACETAMINOPHEN 325 MG TABLET PO PRN ×2 (01:38→10:12)
[2022-06-13] MEDS: ONDANSETRON HCL/PF 4 MG/2 ML VIAL IVP PRN (01:38)
--- NOTE | 2022-06-13 01:38 | NUR ---
SYSTEMS ENGINEERING MANAGER NOTES C/O NAUSEA,ZOFRAN 4MG IV GIVEN ORDERED.
--- NOTE | 2022-06-13 01:38 | NUR ---
MS RN NOTES C/O MILD GENERALIZED BODY ACHE,TYLENOL 650MG PO GIVEN ORDERED
[2022-06-13 04:00] VITALS: BP 136/63
[2022-06-13] MEDS: MEROPENEM 1 G in IV NS 0.9% 100 ML IV SCH ×3 (04:05→21:13)
[2022-06-13 06:58] LABS: HEMATOCRIT 25 % (33-45); LYMPHOCYTES # (AUTO) 0.2 K/uL (0.8-4.8); LYMPHOCYTES % (AUTO) 1.4 % (20.0-44.0); MEAN CORPUSCULAR HGB CONC 32 g/dl (31.0-36.0); MEAN CORPUSCULAR VOLUME 96 fL (82-100); MONOCYTES # (AUTO) 0.7 K/uL (0.1-1.30); MONOCYTES % (AUTO) 5.5 % (2.0-12.0); NEUTROPHILS # (AUTO) 11.8 K/uL (1.8-8.9); NEUTROPHILS % (AUTO) 93.1 % (43.0-81.0); PLATELET COUNT (AUTO) 128 K/uL (150-450); RED BLOOD CELL COUNT(AUTO) 2.61 MIL/uL (4.0-5.2); WHITE BLOOD COUNT (AUTO) 12.7 K/uL (4.3-11.0)
--- NOTE | 2022-06-13 06:58 | NUR ---
TREE AND SHRUB TECHNICIAN CLOSING NOTE PATIENT IS SLEEPING IN BED. SHE IS ON 1LPM OXYGEN VIA NC, BREATHING EVENLY AND UNLABORED. NO S/S OF DISTRESS OR SHORTNESS OF BREATH. NO S/S OF HAVING PAIN CURRENTLY. IV ACCESS IS AT HER L UA MIDLINE,#18G, SL. PATENT AND INTACT. PATIENT HAVE A EXTERNAL MUSSEL FARMER WITH CURRENT READING OF SR WITH PVCs AND HR IS AROUND 80s. SAFETY MEASURES IN PLACE: BED ALARM IS ON, BED IN LOWEST AND LOCK POSITION, CALL LIGHT AND TABLE WITHIN EASY REACH, SIDE RAILS X2. WILL ENDORSE THE NEXT SHIFT NURSE FOR CONTINUE CARE OF THIS PATIENT.
[2022-06-13] MEDS: ALBUTEROL FS 2.5 MG/3 ML VIAL.NEB NEB SCH ×4 (07:16→19:53)
[2022-06-13] MEDS: ACETYLCYSTEINE 10% SOLN 400 MG/4 ML VIAL NEB SCH ×3 (07:16→23:30)
[2022-06-13] MEDS: IPRATROPIUM NEB FS 0.5 MG/2.5 ML AMPUL.NEB NEB SCH ×4 (07:16→19:53)
[2022-06-13] MEDS: BUDESONIDE RESPULE INH 0.5 MG/2 ML AMPUL.NEB IH SCH ×2 (07:16→19:53)
--- NOTE | 2022-06-13 07:25 | NUR ---
pt. received on nasal cannula @ 2 lpm oxygen flow with 95 - 96% spo2 Addendum: 06/13/22 at 0726 by SUSIE HAQ RT Amended: Links added.
--- NOTE | 2022-06-13 07:30 | NUR ---
WILDLIFE MANAGER OPENING NOTE PATIENT AWAKE, ALERT AND ORIENTED, BUT FORGETFUL. A/O X 3. SHE IS ON 1L OXYGEN VIA NC, BREATHING EVENLY AND UNLABORED. NO S/S OF DISTRESS OR SHORTNESS. PATIENT DENIES OF HAVING PAIN NOW. IV ACCESS IS AT HER L UA MIDLINE,#18G, SL.PATENT AND INTACT. PATIENT HAVE A EXTERNAL INVENTORY CONTROLLER WITH CURRENT READING OF SR AND HR 85. PATIENT IS INSTRUCTED TO USE THE CALL HAN FOR ASSISTANCE OR HELP. SAFETY MEASURES IN PLACE: BED ALARM IS ON, BED IN LOWEST AND LOCK POSITION, CALL LIGHT AND TABLE WITHIN EASY REACH, SIDE RAILS X2. WILL CONTINUE TO MONITOR.
[2022-06-13 08:00] VITALS: BP 124/47
[2022-06-13] MEDS: ENSURE ENLIVE 237 ML LIQUID (VANILLA) PO SCH ×3 (08:00→17:17)
[2022-06-13] MEDS: PANTOPRAZOLE 40 MG TABLET.DR PO SCH ×2 (08:29→16:11)
[2022-06-13 08:30] LABS: CALCIUM, SERUM 8.4 mg/dL (8.5-10.1); CHLORIDE 96 mmol/L (98-107); CREATININE 0.6 mg/dL (0.6-1.3); GLUCOSE 97 mg/dL (74-106); POTASSIUM 4.1 mmol/L (3.5-5.1); SODIUM SERUM 140 mmol/L (136-145); UREA NITROGEN, BLOOD 15 mg/dL (7-18)
[2022-06-13 08:32] LABS: CARBON DIOXIDE 46 mmol/L (21-32)
[2022-06-13] MEDS: methylPREDNISolone SOD SUCC 40 MG/ML VIAL IV SCH (09:25)
[2022-06-13] MEDS: DILTIAZEM HCL CD 120 MG PO SCH (09:29)
[2022-06-13] MEDS: CITALOPRAM HYDROBROMIDE 10 MG TABLET PO SCH (09:30)
[2022-06-13] MEDS: DOXYCYCLINE HYCLATE (100 MG) 100 MG TABLET PO SCH ×2 (09:30→21:11)
[2022-06-13] MEDS: LOSARTAN POTASSIUM 50 MG TABLET PO SCH ×2 (09:31→17:16)
[2022-06-13] MEDS: ALPRAZOLAM 0.5 MG TABLET PO PRN (09:31)
[2022-06-13] MEDS: LEVOFLOXACIN (250MG) 250 MG TABLET PO SCH (11:04)
--- NOTE | 2022-06-13 18:41 | NUR ---
MANAGER MEDICAL CLOSING NOTE PATIENT AWAKE IN BED A/O X2-3, FORGETFUL. ON 1LPM OXYGEN VIA NC, BREATHING EVENLY AND UNLABORED. NO S/S OF DISTRESS OR SHORTNESS OF BREATH. . IV ACCESS IS AT HER L UA MIDLINE,#18G, SL. PATENT AND INTACT. PATIENT HAVE A EXTERNAL EPIC AMBULATORY SPECIALISTS WITH CURRENT READING OF SR WITH PVCs AND HR 70. ON PUREWICK WITH URINE OUTPUT OF 950ML. DUE MEDS GIVEN, ALL NEEDS ATTENDED, KEPT COMFORTABLE. SAFETY MEASURES IN PLACE: BED ALARM IS ON, BED IN LOWEST AND LOCK POSITION, CALL LIGHT AND TABLE WITHIN EASY REACH, SIDE RAILS X2. WILL ENDORSE THE NEXT SHIFT NURSE FOR CONTINUE CARE OF THIS PATIENT.
[2022-06-13 20:00] VITALS: BP 142/70
--- NOTE | 2022-06-13 20:00 | NUR ---
RN OPENING NOTE RECEIVED PATIENT IN BED AAOX3 TIMES OF FORGETFUL. ON 1L OXYGEN VIA NC,NO SIGN SOB/DISTRESS NOTED, BREATHING EVENLY AND UNLABORED.IV ACCESS IS AT HER L UA MIDLINE,#18G, SL.PATENT AND INTACT. PATIENT HAVE A EXTERNAL SET UP MACHINIST WITH CURRENT READING OF SR AND HR 88. SAFETY MEASURES IN PLACE: BED ALARM IS ON, BED IN LOWEST AND LOCK POSITION, CALL LIGHT AND TABLE WITHIN EASY REACH, SIDE RAILS X2. WILL CONTINUE TO MONITOR.
[2022-06-13] MEDS: IBUPROFEN 200 MG TABLET PO PRN (21:08)
[2022-06-13] MEDS: TRAZODONE 50 MG TABLET PO PRN (21:08)
[2022-06-13] MEDS: ATORVASTATIN 40 MG TABLET PO SCH (21:10)
[2022-06-13] MEDS: MONTELUKAST SODIUM (10MG) 10 MG TABLET PO SCH (21:11)
[2022-06-14] VITALS: BP 151/62
[2022-06-14] MEDS: HYDROCODONE/APAP 10/325MG TABLET PO PRN ×5 (00:42→18:40)
--- NOTE | 2022-06-14 00:45 | NUR ---
RN NOTE; PT COMPLAINED OF GEN,BODY PAIN 8/10,PRN NORCO 10/325MG WAS GIVEN.NO SIGN A/R NOTED.
[2022-06-14] MEDS: ACETAMINOPHEN 325 MG TABLET PO PRN (02:07)
[2022-06-14] MEDS: ALPRAZOLAM 0.5 MG TABLET PO PRN ×2 (02:25→11:58)
[2022-06-14] MEDS: MEROPENEM 1 G in IV NS 0.9% 100 ML IV SCH ×2 (04:15→12:46)
[2022-06-14 05:00] VITALS: BP 141/65
--- NOTE | 2022-06-14 05:20 | NUR ---
RN NOTE; PT COMPLAINED OF GEN,BODY PAIN 8/10,PRN NORCO 10/325MG WAS GIVEN.NO SIGN A/R NOTED.
--- NOTE | 2022-06-14 06:28 | NUR ---
RN CLOSING NOTE; PATIENT IN BED SLEEPING BUT EASY TO AROUSED,AAOX3 TIMES OF FORGETFUL. ON 1L OXYGEN VIA NC,NO SIGN SOB/DISTRESS NOTED, BREATHING EVENLY AND UNLABORED.DUE MEDS GIVEN ORDER,ALL NEEDS ATTENDED,IV ACCESS IS AT HER L UA MIDLINE,#18G, SL.PATENT AND INTACT. SAFETY MEASURES IN PLACE: BED ALARM IS ON, BED IN LOWEST AND LOCK POSITION, CALL LIGHT AND TABLE WITHIN EASY REACH, SIDE RAILS X2. WILL ENDORSED TO NEXT SHIFT.
--- NOTE | 2022-06-14 07:46 | NUR ---
FLORAL DESIGN TEACHER OPENING NOTE PATIENT AWAKE, ALERT AND ORIENTED, BUT FORGETFUL. A/O X 3. ON 1L OXYGEN VIA NC, BREATHING EVENLY AND UNLABORED. NO S/S OF DISTRESS OR SHORTNESS. PATIENT DENIES OF HAVING PAIN NOW. IV ACCESS IS AT HER L UA MIDLINE,#18G, SL.PATENT AND INTACT. PATIENT HAVE A EXTERNAL INCOME TAX CONSULTANT WITH CURRENT READING OF SR AND HR 70. PATIENT IS INSTRUCTED TO USE THE CALL HAN FOR ASSISTANCE OR HELP. SAFETY MEASURES IN PLACE: BED ALARM IS ON, BED IN LOWEST AND LOCK POSITION, CALL LIGHT AND TABLE WITHIN EASY REACH, SIDE RAILS X2. WILL CONTINUE TO MONITOR.
[2022-06-14] MEDS: ENSURE ENLIVE 237 ML LIQUID (VANILLA) PO SCH ×2 (08:00→12:00)
[2022-06-14] MEDS: PANTOPRAZOLE 40 MG TABLET.DR PO SCH (08:11)
[2022-06-14] MEDS: LOSARTAN POTASSIUM 50 MG TABLET PO SCH (08:12)
[2022-06-14] MEDS: CITALOPRAM HYDROBROMIDE 10 MG TABLET PO SCH (08:12)
[2022-06-14] MEDS: DILTIAZEM HCL CD 120 MG PO SCH (08:13)
[2022-06-14] MEDS: DOXYCYCLINE HYCLATE (100 MG) 100 MG TABLET PO SCH (08:13)
[2022-06-14] MEDS: IPRATROPIUM NEB FS 0.5 MG/2.5 ML AMPUL.NEB NEB SCH ×3 (08:14→14:45)
[2022-06-14] MEDS: ALBUTEROL FS 2.5 MG/3 ML VIAL.NEB NEB SCH ×3 (08:14→14:45)
[2022-06-14] MEDS: ACETYLCYSTEINE 10% SOLN 400 MG/4 ML VIAL NEB SCH ×2 (08:14→14:45)
[2022-06-14] MEDS: methylPREDNISolone SOD SUCC 40 MG/ML VIAL IV SCH (08:15)
[2022-06-14 08:29] VITALS: BP 127/58
[2022-06-14] MEDS: BUDESONIDE RESPULE INH 0.5 MG/2 ML AMPUL.NEB IH SCH (08:39)
[2022-06-14] MEDS: LEVOFLOXACIN (250MG) 250 MG TABLET PO SCH (11:30)
--- NOTE | 2022-06-14 16:23 | NUR ---
Report given to Loret[facility]. Advised to call hospital for any questions and clarification.
[2022-06-14] MEDS: IBUPROFEN 200 MG TABLET PO PRN (17:30)
--- NOTE | 2022-06-14 19:57 | NUR ---
DISCHARGED NOTE PATIENT DISCHARGED TO [facility], AWAKE, A/O X3 IN STABLE CONDITION ON RA, TOLERATING WELL WITH SPO2 OF 96% AT 1LPM. NO RESPIRATORY DISTRESS NOTED. VITALS TAKEN AND RECORDED. BP-100/60 HR-105 RR-20 T-98.4. ALL BELONGINGS ACCOUNTED FOR THE PATIENT. DISCHARGED INSTRUCTION RELAYED TO NURSE TEST DRIVER AT THE SNF. IV ACCESS REMOVED WITH NO ACTIVE BLEEDING. PATIENT REFUSED TAKING PICTURES OF WOUNDS. ALL NEEDS RENDERED, ENCOURAGED BREATHING TECHNIQUES. PATIENT LEFT THE UNIT AROUND 1900H VIA GURNEY ACCOMPANIED BY PATIENT'S SON AND AMBULANCE STAFF. DISCHARGED.
== END 2022-06-14 18:55 | DRG 871 ==
LOC: ER 15:46 → ICU 19:47 → TELE-TD 06-02 12:45 → TELE1 06-04 08:38 → MED 06-06 22:38 → TELE 06-06 23:01
PROVIDERS: ADMIT Nurse Practitioner Acute Care; ATTEND Nurse Practitioner Acute Care
PROC: 5A09357 Assistance with Respiratory Ventilation, Less than 24 Consecutive Hours, Continuous Positive Airway Pressure (ICD-10-PCS; principal; 2022-06-01)
PROC: 05HC33Z Insertion of Infusion Device into Left Basilic Vein, Percutaneous Approach (ICD-10-PCS; 2022-06-04)
DX: A41.9 Sepsis, unspecified organism (principal); G93.41 Metabolic encephalopathy; J18.9 Pneumonia, unspecified organism; J96.21 Acute and chronic respiratory failure with hypoxia; I50.33 Acute on chronic diastolic (congestive) heart failure; J44.1 Chronic obstructive pulmonary disease with (acute) exacerbation; J44.0 Chronic obstructive pulmonary disease with (acute) lower respiratory infection; E87.1 Hypo-osmolality and hyponatremia; G89.29 Other chronic pain; Z20.822 Contact with and (suspected) exposure to COVID-19; L89.621 Pressure ulcer of left heel, stage 1; L89.611 Pressure ulcer of right heel, stage 1; Z99.81 Dependence on supplemental oxygen; Z91.040 Latex allergy status; Z88.0 Allergy status to penicillin; Z91.048 Other nonmedicinal substance allergy status; Z79.51 Long term (current) use of inhaled steroids; Z79.899 Other long term (current) drug therapy; Z85.118 Personal history of other malignant neoplasm of bronchus and lung; Z90.2 Acquired absence of lung [part of]; Z79.52 Long term (current) use of systemic steroids; Z87.891 Personal history of nicotine dependence; Y95 Nosocomial condition; D69.6 Thrombocytopenia, unspecified; S41.111A Laceration without foreign body of right upper arm, initial encounter; S61.412A Laceration without foreign body of left hand, initial encounter; X58.XXXA Exposure to other specified factors, initial encounter; Y92.9 Unspecified place or not applicable; I11.0 Hypertensive heart disease with heart failure; I35.0 Nonrheumatic aortic (valve) stenosis; E66.9 Obesity, unspecified; Z68.27 Body mass index [BMI] 27.0-27.9, adult; F32.A Depression, unspecified; F41.9 Anxiety disorder, unspecified
CPT/HCPCS: 36410; 36415; 36600; 71045-TC; 71250-TC; 80048-TC; 80053-TC; 80061-TC; 80076-TC; 80202-TC; 81001; 82803-TC; 83605-TC; 83735-TC; 83880; 84100-TC; 84443-TC; 84484-TC; 85025-TC; 87040-TC; 87081-TC; 87086-TC; 93307-TC; 94799-TC; 97110-TC; 97112-TC; 97116-TC; 97530-TC; 97535-TC; A4217; A6253; A6403; C9803; G0378; J0692; J1650; J2185; J2270; J2405; J2543; J2920; J2930; J3370; J3475; J3490; J7030; J7050; J7060; J7120